=== PATIENT | male | born 1950 | race Caucasian/White ===

== ENCOUNTER 2018-04-21 13:44 | Emergency (ER) | payer OTHER, SELFPAY ==
[2018-04-21 13:50] VITALS: BP 143/65; PULSE 68; RESP 16; TEMP 36.5; O2SAT 97
--- NOTE | 2018-04-21 14:28 | DI.RAD_ITS ---
SYMPTOM/DIAGNOSIS: FELL, PAIN RIGHT HUMERUS: Four views. No acute fracture or dislocation is seen. Degenerative changes are seen at the acromioclavicular joint and the elbow. The soft tissues are unremarkable. IMPRESSION: No acute abnormality.
--- NOTE | 2018-04-21 14:31 | ED.GENADUL_ITS ---
Discharge Plan Disposition Patient Disposition: HOME Discharge Details Chief Complaint: Orthopedic Clinical Impression: Contusion of right upper arm Primary Care Provider: Ben Diaz ED Provider: Jesse Sol Home Meds and New Rx's Prescriptions: Continued sildenafil [Viagra] 100 MG tablet 1 tab PO PRN Qty: 10 RF: 6 montelukast [Singulair] 10 MG tablet 10 mg PO DAILY RF: 0 triamcinolone acetonide 80 GM ointment 80 gm Topical BID Qty: 1 RF: 2 cetirizine [Zyrtec] 10 MG tablet 10 mg PO DAILY Qty: 30 RF: 0 aspirin 325 MG tablet 325 mg PO DAILY Qty: 30 RF: 0 prednisone 20 MG tablet PO DAILY Qty: 11 RF: 0 lisinopril 20 MG tablet 1 tab PO DAILY Qty: 90 RF: 4 amlodipine [Norvasc] 5 MG tablet 1 tab PO QAM Qty: 90 RF: 4 tamsulosin [Flomax] 0.4 MG capsule 0.4 mg PO DAILY Qty: 90 RF: 4 pravastatin 20 MG tablet 20 mg PO DAILY Qty: 90 RF: 3 Discharge Instructions Instructions: Contusion in Adults (ED) Additional Instructions: Use sling as needed for comfort over the next 1-2 weeks. If pain persist or worsens, please follow-up with orthopedics. Please take ibuprofen over the counter - dose according to label. Please contact your primary care physician to arrange follow-up. Return to the ER for any worsening or new concerning symptoms. Referrals: Ben Diaz DO [Primary Care Provider] - Humphrey Perdomo MD [ [facility] STAFF PHYSICIAN] - Medical Decision Making 67-year-old male presents with right proximal upper arm pain after mechanical slip and fall on ice earlier today. Neurovascular intact distally. Tender over his proximal humerus. Concern for proximal humerus fracture. X-ray of the humerus was reviewed and interpreted by radiology: No evidence of acute bony injury. Spurring of the acromion. Suspect upper arm contusion. Plan to provide sling for comfort. Usual and customary discharge instructions were provided. HPI General Mode of arrival: ambulatory . Date/Time Provider Initiated Documentation: 04/21/18 14:22 . Limitations to Documentation: no limitations . Information obtained by: patient . HPI Narrative: 67-year-old male presents after mechanical slip and fall on ice at 10 AM today with injury to his right shoulder. Patient has chief complaint of proximal right upper arm pain that is worse with movement. Pain is severe at times. No associated numbness or tingling. No other injury. He did not hit his head or lose consciousness and has no neck pain. Related Data Home Medications Medication Instructions Recorded Confirmed sildenafil [Viagra] 1 tab PO PRN #10 tab 04/20/14 04/21/18 montelukast [Singulair] 10 mg PO DAILY tab-cap 10/06/15 04/21/18 triamcinolone acetonide 80 gm TOPICAL BID #1 tub 08/02/16 04/21/18 aspirin 325 mg PO DAILY #30 tab-cap 10/10/16 04/21/18 cetirizine [Zyrtec] 10 mg PO DAILY #30 tab-cap 10/10/16 04/21/18 prednisone 0 PO DAILY #11 tab 05/16/17 amlodipine [Norvasc] 1 tab PO QAM #90 tab 05/28/17 04/21/18 lisinopril 1 tab PO DAILY #90 tab 05/28/17 04/21/18 pravastatin 20 mg PO DAILY #90 tab-cap 05/28/17 04/21/18 tamsulosin [Flomax] 0.4 mg PO DAILY #90 tab-cap 05/28/17 04/21/18 Previous Rx's Medication Instructions Recorded amlodipine [Norvasc] 1 tab PO QAM #90 tab 05/28/17 lisinopril 1 tab PO DAILY #90 tab 05/28/17 pravastatin 20 mg PO DAILY #90 tab-cap 05/28/17 tamsulosin [Flomax] 0.4 mg PO DAILY #90 tab-cap 05/28/17 Allergies Allergy/AdvReac Type Severity Reaction Status Date / Time No Known Allergies Allergy Unverified 04/21/18 13:52 General Stated Complaint: Orthopedic YASMIN: 4 Review of Systems Cardiovascular Denies chest pain and Denies dyspnea Respiratory Denies dyspnea Gastrointestinal Denies abdominal pain Musculoskeletal Reports as per HPI Neurologic Reports as per HPI [facility] Surgical History Fasciectomy, Palmar Ruptured Quad Tendon Repair (12/06/12) Tonsillectomy and adenoidectomy Family History Mother Stroke Father Stroke Sister No problems noted. Brother No problems noted. Grandfather Neoplasm Grandfather No problems noted. Grandmother No problems noted. Grandmother No problems noted. Son No problems noted. Son No problems noted. Social History Smoking and Tabacco status: Former Tobacco Use Exam Const General: cooperative and no acute distress HENMT Head: normocephalic and atraumatic Mouth: moist mucous membranes Neck Neck: full ROM, trachea midline, supple and nontender Resp Auscultation: clear to auscultation bilaterally, no rales, no rhonchi and no wheezes Cardio Rate: regular rate and not tachycardic Rhythm: regular rhythm Pulses: radial pulses present GI Palpation: soft, not firm and nontender Skin General skin exam: no rashes or lesions noted Neuro General: alert, awake and tone normal Extrem General: no edema Right upper extremity: shoulder/upper arm Details: tenderness Location: of the proximal humerus, axillary nerve sensory function normal and abnormal ROM Details: held in an abnormal fashion Details: in ADduction; no ecchymosis Psych Appearance: grossly normal Course Vital Signs Temperature 36.5 C 04/21/18 13:50 Pulse 68 04/21/18 13:50 Respiratory Rate 16 04/21/18 13:50 Blood Pressure 143/65 H 04/21/18 13:50 Pulse Oximetry 97 04/21/18 13:50 Temperature 36.5 C 04/21/18 13:50 Temperature Source Skin 04/21/18 13:50 Pulse 68 04/21/18 13:50 Respiratory Rate 16 04/21/18 13:50 Respiratory Effort Non-Labored 04/21/18 13:50 Blood Pressure 143/65 H 04/21/18 13:50 Blood Pressure Position Sitting 04/21/18 13:50 Pulse Oximetry 97 04/21/18 13:50 Oxygen Delivery Method Room Air 04/21/18 13:50 Oxygen Flow Rate 0 04/21/18 13:50 Pain Level 8 04/21/18 13:54
--- NOTE | 2018-04-21 15:36 | DI.VRAD_ITS ---
EXAM: XR Right Humerus, 2 or More Views EXAM DATE/TIME: 04/21/2018 2:30 PM CLINICAL HISTORY: 67 years old, male; Signs and symptoms; Other: Prox humerus pain, fall; Prior surgery; Surgery date: 6+ months; Surgery type: Shoulder surgery for arthritis TECHNIQUE: XR Right humerus, 2 or more views. COMPARISON: No relevant prior studies available. FINDINGS: No acute fracture. 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 Inferior spurring of the lateral acromion which may predispose to impingement. Soft tissues unremarkable. IMPRESSION: 1. No evidence of acute bony injury. 2. Spurring of the acromion. Dictated and Authenticated by: Reji Farah MD. Ordering:GREGORY Molina MD
== END 2018-04-21 15:45 | disposition home or self-care (01) ==
PROVIDERS: Emergency Provider Student in an Organized Health Care Education/Training Program; PCP Emergency Medicine
DX: S40.021A Contusion of right upper arm, initial encounter (principal); W00.0XXA Fall on same level due to ice and snow, initial encounter
CPT/HCPCS: 99283; 73060; 99282; L3650

== ENCOUNTER 2018-11-08 14:01 | Outpatient (CLI) | payer OTHER, SELFPAY ==
--- NOTE | 2018-11-08 13:45 | DI.RAD_ITS ---
EXAM: XR SHOULDER RT COMPLETE 2+V INDICATION: right shoulder pain, M25.511. COMPARISON: RIGHT SHOULDER COMPLETE from 03/07/2013 TECHNIQUE: 2D digital imaging was performed. FINDINGS: Five views were obtained. There are prominent degenerative changes of the acromioclavicular and gaurav ohumeral joints. Cartilaginous joint space of glenohumeral joint appears fairly well maintained. No other significant bony or soft tissue abnormality seen. IMPRESSION: DJD as described above
== END 2018-11-08 14:21 ==
PROVIDERS: PCP Emergency Medicine; Visit Provider Emergency Medicine
DX: M25.511 Pain in right shoulder (principal); M19.011 Primary osteoarthritis, right shoulder
CPT/HCPCS: 73030

== ENCOUNTER 2018-11-27 10:13 | Outpatient (CLI) | payer OTHER, SELFPAY ==
--- NOTE | 2018-11-27 09:55 | DI.RAD_ITS ---
EXAM: XR SHOULDER RT COMPLETE 2+V INDICATION: pain COMPARISON: XR SHOULDER RT COMPLETE 2+V from 11/08/2018 TECHNIQUE: 2D digital imaging was performed. FINDINGS: Degenerative changes are again noted at the AC joint and glenohumeral joint. Glenohumeral joint spa ce is well maintained. There is also some spurring of the undersurface of the acromion and greater a nd lesser tuberosities. IMPRESSION: Stable degenerative changes.
== END 2018-11-27 10:33 ==
PROVIDERS: PCP Emergency Medicine; Visit Provider Orthopaedic Surgery
DX: M25.511 Pain in right shoulder (principal); M19.011 Primary osteoarthritis, right shoulder
CPT/HCPCS: 73030

== ENCOUNTER 2019-03-19 09:46 | Outpatient (CLI) | payer OTHER, SELFPAY ==
--- NOTE | 2019-03-19 16:16 | DI.RAD_ITS ---
EXAM: XR KNEE RT 3V AP,LAT,BRAVO CLINICAL HISTORY: sudden onset of effusion, pain right knee M25.461 PAIN RT KNEE. TECHNIQUE: COMPARISON: LEFT KNEE 3 VIEW COMPLETE from 05/16/2017 FINDINGS: Three views were obtained. There is mild narrowing of the medial tibiofemoral cartilaginous joint sp tj. There is a prominent enthesophyte of the superior patella. There is marked prepatellar soft ti ssue swelling and there is probable knee joint effusion as well. No other focal bony abnormality seen. No evidence of acute fracture. IMPRESSION:
== END 2019-03-19 10:06 ==
PROVIDERS: PCP Emergency Medicine; Visit Provider Nurse Practitioner Family
DX: M25.561 Pain in right knee (principal); M25.461 Effusion, right knee; M79.89 Other specified soft tissue disorders
CPT/HCPCS: 73562

== ENCOUNTER 2019-03-19 16:41 | Outpatient (CLI) | payer OTHER, SELFPAY ==
[2019-03-19 17:00] LABS: Abs Immature Grans 0.05 k/cumm (0.0-0.09); Absolute Basophil Count 0.02 k/cumm (0.0-0.2); Absolute Lymphocyte Count 0.57 k/cumm (1.2-3.4); Absolute Monocyte Count 0.89 k/cumm (0.11-0.7); Basophils % 0.1; HCT 45.8 % (40.0-50.0); HGB 15.5 g/dL (13.5-17.5); Immature Grans % 0.3 %; Lymphocytes % 3.2; Mean Corp. HGB Concentration 33.8 g/dL (32.0-36.0); Mean Corpuscular Volume 88.6 fL (80-95); Mean Platelet Volume 9.9 fL (8.0-11.0); Neutrophils % 91.4; Platelet Count 192 x1000/uL (130-400); RBC 5.17 m/cumm (4.50-6.00); RBC Distribution Width 12.7 % (11.8-14.1); White Blood Cell Count 17.86 k/cumm (4.4-10.8)
[2019-03-19 17:02] LABS: Absolute Neutrophil Count 16.32 k/cumm (1.2-6.7)
[2019-03-19 17:42] LABS: ALT 30 U/L (16-63); AST 21 U/L (15-37); Albumin 4.4 g/dL (3.4-5.0); Alkaline Phosphatase 74 U/L (46-116); Anion Gap 9.4 mmol/L (3-11); BUN 21 mg/dL (7-18); Bilirubin, Total 0.7 mg/dL (0.2-1.0); C-Reactive Protein 0.57 mg/dL (0.0-0.3); CO2 23.6 mmol/L (21.0-32.0); CREATININE 1.29 mg/dL (0.70-1.30); Calcium 8.7 mg/dL (8.5-10.1); Chloride 106 mmol/L (98-107); Estimated GFR 55.06 (mL/min/1.73m2); Glucose 144 mg/dL (74-106); Potassium 4.2 mmol/L (3.5-5.1); Sodium 139 mmol/L (136-145); Total Protein 7.2 g/dL (6.4-8.2); Uric Acid 4.4 mg/dL (3.5-7.2)
[2019-03-19 17:49] LABS: ESR 10 mm/hr (1-20)
[2019-03-21 11:46] LABS: Lyme Ab w Rflx to Lyme Confirm Negative (Negative)
[2019-03-25 01:18] LABS: Anaplasma phagocytophilum Negative (Negative); B. miyamotoi PCR Negative (Negative); Babesia divergens/MO-1 Negative (Negative); Babesia duncani Negative (Negative); Babesia microti Negative (Negative); Ehrlichia chaffeensis Negative (Negative); Ehrlichia ewingii/canis Negative (Negative); Ehrlichia muris eauclairensis Negative (Negative)
== END 2019-03-19 17:01 ==
PROVIDERS: PCP Emergency Medicine; Visit Provider Nurse Practitioner Family
DX: M25.461 Effusion, right knee; M25.561 Pain in right knee
CPT/HCPCS: 36415; 80053; 85652; 87798; 84550; 85025; 86140; 86618

== ENCOUNTER 2019-03-22 12:33 | Inpatient (IN) | payer OTHER, SELFPAY ==
[2019-03-22 12:44] VITALS: BP 130/96; PULSE 70; RESP 16; TEMP 37.4; O2SAT 100
--- NOTE | 2019-03-22 13:02 | ED.GENADUL_ITS ---
Discharge Plan Disposition Patient Disposition: [facility] INPATIENT Condition: Stable Discharge Details Chief Complaint: Vascular Clinical Impression: Bursitis, prepatellar, right Admit Date/Time: 03/22/19 15:11 Admit Provider: Humphrey Perdomo Attending Provider: Humphrey Perdomo Primary Care Provider: Ben Diaz ED Provider: Humphrey Lopez Discharge Data Discharge Date/Time-TO BE ENTERED AT DEPARTURE: 03/22/19 15:36 Medical Decision Making 68-year-old male with day 5 of right knee swelling and erythema for which she was seen in clinic on March 19, was referred for outpatient x-ray, laboratory, referred to orthopedics and placed on Keflex. Patient now with worsening pain and swelling of the knee. He arrives with vital signs that are within normal limits. The right knee is diffusely swollen, tender, erythematous. X-ray from 03/19: Three views were obtained. There is mild narrowing of the medial tibiofemoral cartilaginous joint space. There is a prominent enthesophyte of the superior patella. There is marked prepatellar soft tissue swelling and there is probable knee joint effusion as well. Laboratories from March 19 revealed a white blood cell count elevated at 17. Repeat laboratories today: CRP is elevated at 18, uric acid 3.3, white blood cell count has come down to 10 but with elevated ANC. I consented the patient for right knee arthrocentesis, he was prepped and draped in standard sterile fashion, anesthetized, but unable to successfully aspirate synovial fluid. Case discussed with Dr. Perdomo who saw the patient in consultation. He performed bedside needle aspiration of the prepatellar space with release of a generous amount of purulent fluid. Patient was given vancomycin and admitted to Dr. Perdomo's service for prepatellar bursitis. HPI General Mode of arrival: ambulatory . Date/Time Provider Initiated Documentation: 03/22/19 12:35 . Limitations to Documentation: no limitations . Information obtained by: patient and family . History of Present Illness 68 year old M presents to the emergency department with the chief complaint of Right knee pain, swelling, erythema, described as moderate, Quality is described as dull and constant, and is localized to the right and lower extremity. Patient reports no radiation. Patient started experiencing this day(s) and it has been constant. Rest improves symptom(s), Movement worsens symptoms . Patient notes no other symptoms.. Patient did receive the following treatments prior to arrival, other (Cephalexin and outpatient x- ray) Related Data Home Medications Medication Instructions Recorded Confirmed cetirizine [Zyrtec] 10 mg PO DAILY #30 tab-cap 10/10/16 03/22/19 pravastatin 20 mg tablet 20 mg PO DAILY #90 tab-cap 08/08/18 03/22/19 amlodipine 5 mg tablet 5 mg PO QAM #90 tab 09/24/18 03/22/19 lisinopril 20 mg tablet 20 mg PO DAILY #90 tab 11/08/18 03/22/19 cephalexin 500 mg tablet 500 mg PO QID 7 Days #28 tab 03/19/19 03/22/19 naproxen 500 mg tablet 500 mg PO BID PRN #60 tab 03/19/19 03/22/19 acetaminophen [Tylenol] 325 mg PO PRN PRN 03/22/19 03/22/19 aspirin [Aspir-Low] 81 mg PO DAILY AM 03/22/19 03/22/19 tamsulosin 0.4 mg PO DAILY AM 03/22/19 03/22/19 Previous Rx's Medication Instructions Recorded pravastatin 20 mg tablet 20 mg PO DAILY #90 tab-cap 08/08/18 amlodipine 5 mg tablet 5 mg PO QAM #90 tab 09/24/18 lisinopril 20 mg tablet 20 mg PO DAILY #90 tab 11/08/18 cephalexin 500 mg tablet 500 mg PO QID 7 Days #28 tab 03/19/19 naproxen 500 mg tablet 500 mg PO BID PRN #60 tab 03/19/19 Allergies Allergy/AdvReac Type Severity Reaction Status Date / Time No Known Allergies Allergy Unverified 03/22/19 12:48 General Stated Complaint: Vascular YASMIN: 3 Review of Systems Narrative: Denies fever, chills, no injury. Taking Keflex with no change. Joint hurts to move. 6 systems reviewed and otherwise negative [facility] Social History Smoking/Tobacco Use Status: Former Tobacco Use Drug use: Never Current gender identity: male Do you feel safe in your relationship?: Yes Exam Narrative Exam Narrative: GEN: awake, alert, oriented 3. Pleasant, well groomed, interactive. HEAD: Normocephalic, atraumatic ENT: Mucous membranes moist, oropharynx unremarkable, External ear exam unremarkable EYES: PERRL, EOMI NECK: Full ROM, no PARRISH, no menigismus CHEST/RESP: Nontender, clear to auscultation bilateral, no wheeze/rhonchi/rales CARDIOVASCULAR: RRR, no murmur, rub sol. 2+ Rad pulse bilateral ABDOMEN: Soft, nontender, no mass. +Bowel sounds EXT: The right knee is edematous and tense with overlying erythema that is warm to the touch. Pain with movement of the knee. Motor is intact but limited by pain. Neuro: Grossly normal neurologic exam, conversant, interactive. Psych: Speech fluent, thoughts congruent, affect normal Course Vital Signs Vital signs: Vital Signs Temperature 37.4 C 03/22/19 12:44 Pulse 70 03/22/19 12:44 Respiratory Rate 16 03/22/19 12:44 Blood Pressure 130/96 H 03/22/19 12:44 Pulse Oximetry 100 03/22/19 12:44 Temperature 37.4 C 03/22/19 12:44 Temperature Source Temporal Artery Scan 03/22/19 12:44 Pulse 70 03/22/19 12:44 Respiratory Rate 16 03/22/19 12:44 Blood Pressure 130/96 H 03/22/19 12:44 Blood Pressure Position Supine 03/22/19 12:44 Pulse Oximetry 100 03/22/19 12:44 Oxygen Delivery Method Room Air 03/22/19 12:44 Oxygen Flow Rate 0 03/22/19 12:44 Pain Level 10 03/22/19 12:44
[2019-03-22 13:38] LABS: Abs Immature Grans 0.03 k/cumm (0.0-0.09); Absolute Basophil Count 0.01 k/cumm (0.0-0.2); Absolute Eosinophil Count 0.12 k/cumm (0.0-0.7); Absolute Lymphocyte Count 0.96 k/cumm (1.2-3.4); Absolute Neutrophil Count 8.29 k/cumm (1.2-6.7); Basophils % 0.1; Eosinophils % 1.2; HCT 42.8 % (40.0-50.0); HGB 14.7 g/dL (13.5-17.5); Immature Grans % 0.3 %; Lymphocytes % 9.3; Mean Corp. HGB Concentration 34.3 g/dL (32.0-36.0); Mean Corpuscular Hemoglobin 30.5 pg (27.0-33.0); Mean Corpuscular Volume 88.8 fL (80-95); Mean Platelet Volume 10.1 fL (8.0-11.0); Monocytes % 8.7; Neutrophils % 80.4; Platelet Count 197 x1000/uL (130-400); RBC 4.82 m/cumm (4.50-6.00); RBC Distribution Width 12.7 % (11.8-14.1); White Blood Cell Count 10.31 k/cumm (4.4-10.8)
[2019-03-22 13:52] LABS: ALT 25 U/L (16-63); AST 18 U/L (15-37); Albumin 3.4 g/dL (3.4-5.0); Alkaline Phosphatase 66 U/L (46-116); Anion Gap 10.3 mmol/L (3-11); BUN 23 mg/dL (7-18); Bilirubin, Total 0.7 mg/dL (0.2-1.0); C-Reactive Protein 18.19 mg/dL (0.0-0.3); CO2 25.7 mmol/L (21.0-32.0); CREATININE 1.08 mg/dL (0.70-1.30); Calcium 8.1 mg/dL (8.5-10.1); Chloride 103 mmol/L (98-107); Glucose 101 mg/dL (74-106); Potassium 4.1 mmol/L (3.5-5.1); Sodium 139 mmol/L (136-145); Total Protein 7.2 g/dL (6.4-8.2); Uric Acid 3.3 mg/dL (3.5-7.2)
[2019-03-22] MEDS: Ketorolac 15 MG/ML VIAL IVP (14:15)
[2019-03-22 14:18] VITALS: TEMP 37
[2019-03-22 15:27] VITALS: BP 120/68; PULSE 72; RESP 20; TEMP 36.6; O2SAT 96
[2019-03-22 15:47] VITALS: BP 134/75; PULSE 69; RESP 18; TEMP 37.1; O2SAT 96
[2019-03-22] MEDS: VANCOMYCIN 2,000 MG in Normal Saline 500 ML 250 MG IVPB (16:31)
[2019-03-22] MEDS: HYDROcodone 5/Acetaminophen 325 TAB PO (18:25)
[2019-03-22 19:03] VITALS: BP 129/73; PULSE 76; RESP 20; TEMP 37.8; O2SAT 96
[2019-03-22] MEDS: Ketorolac 30 MG/ML VIAL IVP (19:12)
[2019-03-22] MEDS: Lisinopril 20 MG TAB PO (19:13)
[2019-03-22] MEDS: Pravastatin 20 MG TAB PO (19:13)
[2019-03-22] MEDS: Normal Saline Flush 10 ML SYR IVP (19:13)
[2019-03-22 23:35] VITALS: BP 112/71; PULSE 68; RESP 16; TEMP 37.2; O2SAT 96
[2019-03-23] VITALS (7 sets, daily range): BP systolic 117–127; BP diastolic 7–75; PULSE 58–74; RESP 16–20; TEMP 35.8–37.1; O2SAT 95–98
[2019-03-23] MEDS: Ketorolac 30 MG/ML VIAL IVP ×4 (01:35→19:38)
[2019-03-23] MEDS: Normal Saline Flush 10 ML SYR IVP ×5 (01:35→13:46)
[2019-03-23] MEDS: HYDROcodone 5/Acetaminophen 325 TAB PO ×3 (01:37→12:15)
[2019-03-23] MEDS: Water,Injection,Sterile 10 ML VIAL ×2 (06:11)
[2019-03-23] MEDS: VANCOMYCIN 2,000 MG in Normal Saline 500 ML 167 MG IVPB (06:13)
[2019-03-23] MEDS: Tamsulosin 0.4 MG CAPCR PO (07:50)
[2019-03-23] MEDS: Aspirin E.C. 81 MG TABEC PO (07:50)
[2019-03-23] MEDS: amLODIPine 5 MG TAB PO (07:50)
--- NOTE | 2019-03-23 10:59 | PDOC.CMIN ---
- If Service Date Differs Date of service: 03/23/19 Time of Service: 10:59 Care Management Initial Assess REASON FOR HOSPITALIZATION:: Bursitis, right prepatellar PAST MEDICAL HISTORY/PAST SURGICAL HISTORY:: HTN, BPH, hearing loss, right rotator cuff repair, quad rupture 2013 repair. PREVIOUS FUNCTIONAL STATUS/SOCIAL/FAMILY SUPPORTS:: Trung lives in [place], [place] with his spouse yLnne . He is indepedent with ADL's, transporation. 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 CURRENT FUNCTIONAL STATUS:: Trung is alert and engaged during assessment. He is able to articulate events prior to admission including history of visit with his primary care, and oral abx. Trung reports that the pain and swelling became worse and he went to the ED for treatment. He was brought to the OR today by and remains on IV abx. ADVANCE DIRECTIVES:: None on file offered forms and assistance in completion. Has patient been provided with information about the portal?: Yes Did the patient sign up for the portal?: No CODE STATUS:: Full Code INSURANCE COVERAGE / FINANCIAL ISSUES:: [employer] CURRENT HOME/COMMUNITY SERVICES/EQUIPMENT:: No current services PRIMARY CARE PHYSICIAN:: POTENTIAL DISCHARGE NEEDS:: Follow up appointment with orthopedics as directed PATIENT/FAMILY EDUCATION NEEDS:: Discharge education, limitations and follow up plan of care. ANTICIPATED BARRIERS TO DISCHARGE:: None TRANSPORTATION:: Via private car with family PLAN:: Trung will be discharged home when he is medically ready. Anticipate no additional services at time of discharge. CM will continue to assess for discharge needs.
--- NOTE | 2019-03-23 11:06 | PHARADMIT ---
Addendum entered by Mavis Delacruz 03/24/19 15:47: Pharmacy Note Subjective pt feeling better per progress note Objective VS-okay no labs Assessment MD wants to continue vanco at current dose until tomorrow due to micro, to make sure only growing group C strep. no trough needed per MD Plan possible discharge on PO abx tomorrow pending micro Original Note: Admission Pharmacy Clinical Review PREPATELLAR BURSITIS (OR W/ 03/23/19 for I&D) Code Status Full Code Current Weight 92.986 kg Renally Cleared and Narrow Therapeutic Index Meds CrCl~59ml/min QTc Value / Action Taken N/A BP Control, Fever BP 122/73 Afebrile Pain 04/21 Electrolytes reviewed K+ 4.1 DVT Prophylaxis none at this time-going to OR Opiate Usage / Scheduled Bowel Regimen Ordered Yes, Merritt....no bowel meds Plt/SCr for Heparin / Enoxaparin Plt 197 SCr 1.08 INR for Warfarin H/H stable, WBC/Bands H/H 14.7/42.8 WBC 10.31 Antibiotic appropriateness Vanco 2 gram IV Q12h...not per protocol, predicted trough 26.5, patient going to OR, did receive 2 doses prior to going to OR (6pm,6am) Cultures and Sensitivities Synovial fluid from knee collected in ER: reported this morning Group C Strep-rare, so will not need Vanco anyway Surgical ABX d/c within 24 hr DM control / Insulin Dosing BG 101 Heart Failure (Check EF%) (GENARO's, B-Block, Diuretics) Amlodipine, Lisinopril IV to PO Switch Home Meds Reviewed Home Meds Not Ordered Cetirizine, Naproxen, some older Rx's on home med list Comments Was on Cephalexin as outpt CRP 18.19
[2019-03-23] MEDS: Lactated Ringers 1,000 ML 75 ML IV (11:45)
[2019-03-23] MEDS: Bupivacaine 0.5% Pres-Free 30 ML VIAL (11:58)
--- NOTE | 2019-03-23 12:21 | W.PM.PROGNOT ---
Date of Service Date of service: 03/23/19 Time of Service: 12:21 Assessment and Plan Assessment and plan (1) Infection of right prepatellar bursa: Status: Acute Assessment and plan: Assessment: Despite the fact that he is been afebrile and feels better today I think he needs an I&D of his infected prepatellar bursa. I took out 15 cc of herson pus from the prepatellar bursa yesterday and he has reaccumulated pus overnight. I think his response to treatment and recovery will be much quicker with incision and drainage and insertion of a drain into the prepatellar bursa. He agrees with my recommendation. Plan: I&D of infected prepatellar bursa with insertion of a Deon drain under IV sedation and local anesthesia later today. Subjective Subjective Patient reports: feels better and pain is less Exam Narrative Exam Narrative: He has reaccumulated the fluid in his right prepatellar bursa. I can ballotte fluid in the prepatellar bursa. There is no effusion in the knee. Still painful for him to attempt to flexes right knee. Bursal culture from yesterday is the reported is growing group C strep. He has been afebrile overnight. Objective Objective Clinical Data: Abnormal lab results 03/22/19 03/22/19 Range/Units 13:25 13:25 Absolute Neutrophils 8.29 H (1.2-6.7) k/cumm Absolute Lymphocytes 0.96 L (1.2-3.4) k/cumm Absolute Monocytes 0.90 H (0.11-0.7) k/cumm BUN 23 H (7-18) mg/dL Uric Acid 3.3 L (3.5-7.2) mg/dL Calcium 8.1 L (8.5-10.1) mg/dL C-Reactive Protein 18.19 H (0.0-0.3) mg/dL Vital Signs Temperature 37.1 C 03/23/19 07:30 Temperature Source Temporal Artery Scan 03/23/19 07:30 Pulse 60 03/23/19 07:30 Pulse Rhythm Regular 03/23/19 07:45 Respiratory Rate 16 03/23/19 07:30 Respiratory Effort Non-Labored 03/23/19 07:45 Respiratory Depth Normal 02/09/20 07:45 Respiratory Pattern Normal 03/23/19 07:45 Blood Pressure 122/73 03/23/19 07:30 Blood Pressure Mean 85 03/22/19 15:27 Blood Pressure Position Supine 03/22/19 12:44 Pulse Oximetry 98 03/23/19 07:30 Oxygen Delivery Method Room Air 03/23/19 07:30 Oxygen Flow Rate 0 03/23/19 07:30 Pain Level 3 03/23/19 09:42 Intake & Output 03/22/19 03/23/19 03/23/19 23:59 11:59 23:59 Intake Total 520 / 520 800 / 1100 300 / 1100 Balance 520 / 520 800 / 1100 300 / 1100 Weight 92.986 kg Intake: IV 520 / 520 500 / 800 300 / 800 Oral 300 / 300 Other: Urine Color Pale Yellow Urine Appearance Clear Urine Odor None Comment pt denies any urinary issues PER PATIENT Voiding Methods Toilet Toilet Laboratory Results WBC 10.31 k/cumm (4.4-10.8) 03/22/19 13:25 RBC 4.82 m/cumm (4.50-6.00) 03/22/19 13:25 Hgb 14.7 g/dL (13.5-17.5) 03/22/19 13:25 Hct 42.8 % (40.0-50.0) 03/22/19 13:25 MCV 88.8 fL (80-95) 03/22/19 13:25 MCH 30.5 pg (27.0-33.0) 03/22/19 13:25 MCHC 34.3 g/dL (32.0-36.0) 03/22/19 13:25 RDW 12.7 % (11.8-14.1) 03/22/19 13:25 Plt Count 197 x1000/uL (130-400) 03/22/19 13:25 MPV 10.1 fL (8.0-11.0) 03/22/19 13:25 Immature Gran % 0.3 % 03/22/19 13:25 Neutrophils % 80.4 03/22/19 13:25 Lymphocytes % 9.3 03/22/19 13:25 Monocytes % 8.7 03/22/19 13:25 Eosinophils % 1.2 03/22/19 13:25 Basophils % 0.1 03/22/19 13:25 Absolute Neutrophils 8.29 k/cumm (1.2-6.7) H 03/22/19 13:25 Absolute Lymphocytes 0.96 k/cumm (1.2-3.4) L 03/22/19 13:25 Absolute Monocytes 0.90 k/cumm (0.11-0.7) H 03/22/19 13:25 Absolute Eosinophils 0.12 k/cumm (0.0-0.7) 03/22/19 13:25 Absolute Basophils 0.01 k/cumm (0.0-0.2) 03/22/19 13:25 Sodium 139 mmol/L (136-145) 03/22/19 13:25 Potassium 4.1 mmol/L (3.5-5.1) 03/22/19 13:25 Chloride 103 mmol/L (98-107) 03/22/19 13:25 Carbon Dioxide 25.7 mmol/L (21.0-32.0) 03/22/19 13:25 Anion Gap 10.3 mmol/L (3-11) 03/22/19 13:25 BUN 23 mg/dL (7-18) H 03/22/19 13:25 Creatinine 1.08 mg/dL (0.70-1.30) 03/22/19 13:25 Estimated GFR/1.73 m2 >= 60.00 (mL/min/1.73m2) 03/22/19 13:25 Glucose 101 mg/dL (74-106) 03/22/19 13:25 Uric Acid 3.3 mg/dL (3.5-7.2) L 03/22/19 13:25 Calcium 8.1 mg/dL (8.5-10.1) L 03/22/19 13:25 Total Bilirubin 0.7 mg/dL (0.2-1.0) 03/22/19 13:25 AST 18 U/L (15-37) 03/22/19 13:25 ALT 25 U/L (16-63) 03/22/19 13:25 Alkaline Phosphatase 66 U/L (46-116) 03/22/19 13:25 C-Reactive Protein 18.19 mg/dL (0.0-0.3) H 03/22/19 13:25 Total Protein 7.2 g/dL (6.4-8.2) 03/22/19 13:25 Albumin 3.4 g/dL (3.4-5.0) 03/22/19 13:25 Fluid Source Cancelled 03/22/19 15:00 Fluid Color Cancelled 03/22/19 15:00 Fluid Clarity Cancelled 03/22/19 15:00 Fluid WBC Cancelled 03/22/19 15:00 Fluid Mononuclear Cell Cancelled 03/22/19 15:00 Fl Polymorphonucl Cell Cancelled 03/22/19 15:00 Fluid Other Cells Cancelled 03/22/19 15:00 Path Cons Comment Cancelled 03/22/19 15:00
--- NOTE | 2019-03-23 12:27 | W.ORTHOCONSU ---
Date of service: 03/22/19 Time of Service: 15:27 History of Present Illness History of Present Illness Chief Complaint: Painful swollen right knee. Narrative: This is a 68-year-old white male known to me due to previous repair of a ruptured left quadriceps tendon. 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 He was working the day before onset of symptoms on 03/19/2019. On 03/19/2019 had a lot of pain and was difficult to walk because of the pain. He could not bend his knee very well because of pain. He was seen by his PCP who arturo labs gave him Toradol and placed him on naproxen and Keflex 500 mg p.o. 4 times daily. Made appointment to be seen on 03/25/2019 by Celeste Lawson. Unfortunately his pain progressed despite being on Keflex. He went to the emergency room today 03/22/2019 because of severity of the pain. In the emergency room aspiration of his knee was attempted by Dr. Lopez. He was unable to obtain any fluid. CRP was 0.57 and sed rate was 10 mm/h on 03/19/2019. Today is CRP is 18+. His white blood cell count is over 10,000 with a left shift. I was consulted for further evaluation including aspiration of his right knee. Assessment and Plan Assessment and plan (1) Infection of right prepatellar bursa: Status: Acute Assessment and plan: Assessment: Infected prepatellar bursa on the right. He does not have septic arthritis of his right knee. Since he failed treatment with an adequate dose of Keflex for 4 days I think he is going to need some IV therapy for this infection. I would recommend starting him on vancomycin to cover MRSA until cultures and sensitivities are available. He may need I&D of the prepatellar bursa as well. Plan: Admit for IV antibiotics and observation. We will start him on vancomycin 2 g every 12 hours. We will reevaluate him tomorrow morning. If he is reaccumulated the fluid and swelling in his prepatellar bursa, I would recommend I&D with insertion of a Deon drain to speed recovery. We will switch to appropriate antibiotics once the cultures are available. [facility] Medical History (Updated 03/23/19 @ 12:25 by Humphrey Acosta MD) Bursitis, prepatellar, right (Inactive) Effusion, right knee (Inactive) Surgical History Fasciectomy, Palmar 10/12/14 DR. ACOSTA; LEFT LITTLE AND RING FINGERS Ruptured Quad Tendon Repair (12/06/12) Left. Tonsillectomy and adenoidectomy Social History Smoking/Tobacco Use Status: Former Tobacco Use Drug use: Never Current gender identity: male Do you feel safe in your relationship?: Yes Exam Narrative Exam Narrative: He has a lot of prepatellar swelling in the right knee. There is overlying erythema over the patella. I do not palpate an effusion. I can see where an aspiration was done by Dr. Lopez. The puncture wound is on the medial side proximal to the patella. The prepatellar bursa is quite swollen I can palpate fluctuance. Very painful for him to flex his knee more than 15 to 20 degrees. I prepped the skin with alcohol and then aspirate the prepatellar bursa with 18-gauge needle. I removed 15 cc of herson pus from the bursa. It is too painful to try to force more fluid out manually from the needle. The sample is sent for routine culture and sensitivity. He feels better with some of the pressure relieved from the aspiration. Results Last Vital Signs Temp 37.1 C 03/23/19 07:30 Pulse 60 03/23/19 07:30 Resp 16 03/23/19 07:30 BP 122/73 03/23/19 07:30 Pulse Ox 98 03/23/19 07:30 Labs Result diagrams: 03/22/19 13:25 03/22/19 13:25 Labs: Laboratory Results - last 24 hr 03/22/19 03/22/19 03/22/19 13:25 13:25 15:00 WBC 10.31 RBC 4.82 Hgb 14.7 Hct 42.8 MCV 88.8 MCH 30.5 MCHC 34.3 RDW 12.7 Plt Count 197 MPV 10.1 Immature Gran % 0.3 Neutrophils % 80.4 Lymphocytes % 9.3 Monocytes % 8.7 Eosinophils % 1.2 Basophils % 0.1 Absolute Neutrophils 8.29 H Absolute Lymphocytes 0.96 L Absolute Monocytes 0.90 H Absolute Eosinophils 0.12 Absolute Basophils 0.01 Sodium 139 Potassium 4.1 Chloride 103 Carbon Dioxide 25.7 Anion Gap 10.3 BUN 23 H Creatinine 1.08 Estimated GFR/1.73 m2 >= 60.00 Glucose 101 Uric Acid 3.3 L Calcium 8.1 L Total Bilirubin 0.7 AST 18 ALT 25 Alkaline Phosphatase 66 C-Reactive Protein 18.19 H Total Protein 7.2 Albumin 3.4 Fluid Source Cancelled Fluid Color Cancelled Fluid Clarity Cancelled Fluid WBC Cancelled Fluid Mononuclear Cell Cancelled Fl Polymorphonucl Cell Cancelled Fluid Other Cells Cancelled Path Cons Comment Cancelled
[2019-03-23] MEDS: Normal Saline 1,000 ML 125 ML IV ×2 (13:47→23:01)
[2019-03-23] MEDS: Acetaminophen 325 MG TAB 650 MG PO (16:21)
[2019-03-23] MEDS: VANCOMYCIN 2,000 MG in Normal Saline 500 ML 250 MG IVPB (17:55)
[2019-03-23] MEDS: Docusate Sodium 100 MG CAP PO (19:37)
[2019-03-23] MEDS: Lisinopril 20 MG TAB PO (19:37)
[2019-03-23] MEDS: Pravastatin 20 MG TAB PO (19:37)
[2019-03-24] MEDS: Ketorolac 30 MG/ML VIAL IVP ×4 (01:38→20:07)
[2019-03-24] MEDS: VANCOMYCIN 2,000 MG in Normal Saline 500 ML 250 MG IVPB ×2 (05:20→17:53)
[2019-03-24] MEDS: HYDROcodone 5/Acetaminophen 325 TAB PO ×2 (05:34→14:25)
[2019-03-24 07:24] VITALS: BP 121/72; PULSE 63; RESP 18; TEMP 37.1; O2SAT 96
[2019-03-24] MEDS: Docusate Sodium 100 MG CAP PO ×2 (07:54→20:06)
[2019-03-24] MEDS: Aspirin E.C. 81 MG TABEC PO (07:54)
[2019-03-24] MEDS: Pantoprazole 40 MG TABCR PO (07:55)
[2019-03-24] MEDS: Tamsulosin 0.4 MG CAPCR PO (07:55)
[2019-03-24] MEDS: amLODIPine 5 MG TAB PO (07:55)
--- NOTE | 2019-03-24 10:19 | ROE_ITS ---
DATE OF PROCEDURE: March 23, 2019 PREOPERATIVE DIAGNOSIS: Infected right prepatellar bursa. POSTOPERATIVE DIAGNOSIS: Same. PROCEDURE: I$T$D of infected prepatellar bursa, right; insertion of Deon drain. ANESTHESIA: IV sedation, Sneha Alba CRNA SURGEON: Humphrey Perdomo M.D. INDICATIONS: This is a 68-year-old white male who was admitted yesterday with an infected prepatella r bursa. He was started on IV antibiotics. I had aspirated his prepatellar bursa yesterday and obta ined herson pus with the aspiration. The swelling and pus in the prepatellar bursa had reaccumulated overnight. I recommended I$T$D of the infected prepatellar bursa to decompress it, alleviate his kerwin n and help the infection resolve more quickly. The risks and complications of the procedure were exp lained to the patient in detail preoperatively. PROCEDURE: The patient was taken to the operating room on 03/23/2019. He was placed supine on the ope rating table. His IV sedation was administered. I prepped his knee with ChloraPrep and then block d raped it with sterile towels and an Ioban. I infiltrated the skin in the midline over the patella wi th 0.5% Marcaine solution. I then took a #11 blade and made an incision through the skin and subcu i nto the prepatellar bursa. The incision was about three quarters of an inch. Herson pus was expresse d from the prepatellar bursa. I then inserted a Tere clamp and spread it to break up any septae wit hin the bursa so no isolated compartments would occur. I then copiously irrigated the bursa with Bet adine and saline solution. I inserted a quarter-inch Deon drain, which I sutured into the incisio n and I loosely approximated the incision with a few interrupted #4-0 nylon sutures. The wound was d ressed with Xeroform gauze, sterile gauze 4x4's, ABD pad, wrapped with a Kerlix bandage and then wrap ped with a 6-inch GENARO bandage for a light compressive dressing. The patient's sedation was reversed without complications and he was discharged to the recovery room in good condition. He was later discharged from the recovery room to his own hospital room when fully recovered from his sedation.
[2019-03-24] MEDS: Milk of Magnesia 30 ML CUP PO (10:41)
[2019-03-24] MEDS: Acetaminophen 325 MG TAB 650 MG PO (10:41)
--- NOTE | 2019-03-24 11:08 | W.NUTCONSULT ---
Date of service: 03/24/19 Time of Service: 11:08 Nutritional Consult ASSESSMENT: 68 year old male, admitted with bursitis. BMI indicates class 1 obesity. Following Regular meal plan. Will follow and adjust meal plan as needed. MONITORING AND EVALUATION: po intake, weight, labs Time Spent in Nutritional Counseling and Treatment: 0 time spent face to face
[2019-03-24] MEDS: Normal Saline 1,000 ML 60 ML IV (12:37)
--- NOTE | 2019-03-24 14:56 | CHAPLAIN ---
Trung was sitting up in the chair when I visited. He was very pleasant and easily engaged in a conversation telling me about his infected knee and the surgery he had to take care of it. He is waiting to see Dr. Perdomo again, and thinks he may be discharged today. His has been in to visit him. Trung seems to be comfortable being here.
--- NOTE | 2019-03-24 15:19 | W.PM.PROGNOT ---
Date of Service Date of service: 03/24/19 Time of Service: 15:19 Assessment and Plan Assessment and plan (1) Infection of right prepatellar bursa: Status: Acute Assessment and plan: Assessment: Infected prepatellar bursa right. I would like him to have another 24 hours of IV antibiotics before switching him to oral. This will also allow micro to further characterize what is growing and make sure is just group C strep. Plan: Continue vancomycin for now. Will remove his drain tomorrow and send him home on oral penicillin if only group C strep is growing from his cultures. Subjective Subjective Patient reports: feels better and pain is less Interval history since last seen: Says his knee feels dramatically better today. Exam Narrative Exam Narrative: I change his dressings today. There is clean serosanguineous drainage that did not soak through the ABD pad. With the dressings off the anterior swelling of the knee and prepatellar bursa is much less. He can actually do an active straight leg raise today on his own. Gentle passive flexion of his right knee does not cause him any pain. It does not cause any fluid to come out from the drain either. I talk with micro about what is growing so far. They tell me there may be a isolated bug that is different from the group C strep. I will know more tomorrow. He remains afebrile. Objective Objective Clinical Data: Vital Signs Temperature 37.1 C 03/24/19 07:24 Temperature Source Tympanic 03/24/19 07:24 Pulse 63 03/24/19 07:24 Pulse Rhythm Regular 03/24/19 09:06 Respiratory Rate 18 03/24/19 07:24 Respiratory Effort 03/24/19 04:25 Respiratory Depth Normal 03/24/19 04:25 Respiratory Pattern Normal 03/24/19 04:25 Blood Pressure 121/72 03/24/19 07:24 Blood Pressure Mean 85 03/22/19 15:27 Blood Pressure Position Supine 03/22/19 12:44 Pulse Oximetry 96 03/24/19 07:24 Oxygen Delivery Method Room Air 03/24/19 07:24 Oxygen Flow Rate 0 03/24/19 07:24 Pain Level 8 03/24/19 14:25 Intake & Output 03/23/19 03/24/19 03/24/19 23:59 11:59 23:59 Intake Total 1800 / 2600 2300.000 / 2300.000 Output Total 800 / 800 725 / 725 Balance 1000 / 1800 1575.000 / 1575.000 Intake: IV 1800 / 2300 1500.000 / 1500.000 Oral 800 / 800 Output: Urine 800 / 800 725 / 725 Other: Urine Color Yellow Light Pam Urine Appearance Clear Clear Urine Odor None Voiding Methods Toilet Toilet Laboratory Results WBC 10.31 k/cumm (4.4-10.8) 03/22/19 13:25 RBC 4.82 m/cumm (4.50-6.00) 03/22/19 13:25 Hgb 14.7 g/dL (13.5-17.5) 03/22/19 13:25 Hct 42.8 % (40.0-50.0) 03/22/19 13:25 MCV 88.8 fL (80-95) 03/22/19 13:25 MCH 30.5 pg (27.0-33.0) 03/22/19 13:25 MCHC 34.3 g/dL (32.0-36.0) 03/22/19 13:25 RDW 12.7 % (11.8-14.1) 03/22/19 13:25 Plt Count 197 x1000/uL (130-400) 03/22/19 13:25 MPV 10.1 fL (8.0-11.0) 03/22/19 13:25 Immature Gran % 0.3 % 03/22/19 13:25 Neutrophils % 80.4 03/22/19 13:25 Lymphocytes % 9.3 03/22/19 13:25 Monocytes % 8.7 03/22/19 13:25 Eosinophils % 1.2 03/22/19 13:25 Basophils % 0.1 03/22/19 13:25 Absolute Neutrophils 8.29 k/cumm (1.2-6.7) H 03/22/19 13:25 Absolute Lymphocytes 0.96 k/cumm (1.2-3.4) L 03/22/19 13:25 Absolute Monocytes 0.90 k/cumm (0.11-0.7) H 03/22/19 13:25 Absolute Eosinophils 0.12 k/cumm (0.0-0.7) 03/22/19 13:25 Absolute Basophils 0.01 k/cumm (0.0-0.2) 03/22/19 13:25 Sodium 139 mmol/L (136-145) 03/22/19 13:25 Potassium 4.1 mmol/L (3.5-5.1) 03/22/19 13:25 Chloride 103 mmol/L (98-107) 03/22/19 13:25 Carbon Dioxide 25.7 mmol/L (21.0-32.0) 03/22/19 13:25 Anion Gap 10.3 mmol/L (3-11) 03/22/19 13:25 BUN 23 mg/dL (7-18) H 03/22/19 13:25 Creatinine 1.08 mg/dL (0.70-1.30) 03/22/19 13:25 Estimated GFR/1.73 m2 >= 60.00 (mL/min/1.73m2) 03/22/19 13:25 Glucose 101 mg/dL (74-106) 03/22/19 13:25 Uric Acid 3.3 mg/dL (3.5-7.2) L 03/22/19 13:25 Calcium 8.1 mg/dL (8.5-10.1) L 03/22/19 13:25 Total Bilirubin 0.7 mg/dL (0.2-1.0) 03/22/19 13:25 AST 18 U/L (15-37) 03/22/19 13:25 ALT 25 U/L (16-63) 03/22/19 13:25 Alkaline Phosphatase 66 U/L (46-116) 03/22/19 13:25 C-Reactive Protein 18.19 mg/dL (0.0-0.3) H 03/22/19 13:25 Total Protein 7.2 g/dL (6.4-8.2) 03/22/19 13:25 Albumin 3.4 g/dL (3.4-5.0) 03/22/19 13:25 Fluid Source Cancelled 03/22/19 15:00 Fluid Color Cancelled 03/22/19 15:00 Fluid Clarity Cancelled 03/22/19 15:00 Fluid WBC Cancelled 03/22/19 15:00 Fluid Mononuclear Cell Cancelled 03/22/19 15:00 Fl Polymorphonucl Cell Cancelled 03/22/19 15:00 Fluid Other Cells Cancelled 03/22/19 15:00 Path Cons Comment Cancelled 03/22/19 15:00
--- NOTE | 2019-03-24 15:28 | CMPROGNOTE_ITS ---
- If Service Date Differs Date of service: 03/24/19 Time of Service: 15:28 Care Management Progress Note S/O: Trung remains acute today he is changing from observation to inpatient. His wound cultures are showing Strep C and he continues on IV Vancomycin. He reports his knee is feeling better expect occasionally he feels a stabbing pain in that area. changed the dressing today and will continue the course. CM offered a financial packet for patient assistance and sent clinicals to [facility] today. CM will continue to assess for discharge needs. A: Trung is a 68 year old male admitted right, Infection of right prepatellar bursa P:Trung will be discharged home when medically ready, anticipate he will not need any additional services at time of discharge. Spouse to transport at time of discharge.
[2019-03-24 15:34] VITALS: BP 124/76; PULSE 61; RESP 19; TEMP 36.3; O2SAT 96
[2019-03-24] MEDS: Lisinopril 20 MG TAB PO (20:06)
[2019-03-24] MEDS: Pravastatin 20 MG TAB PO (20:06)
[2019-03-24] MEDS: Normal Saline Flush 10 ML SYR IVP (20:06)
[2019-03-24 20:29] VITALS: BP 128/76; PULSE 63; RESP 19; TEMP 36.3; O2SAT 97
[2019-03-25] MEDS: Ketorolac 30 MG/ML VIAL IVP ×2 (01:44→08:31)
[2019-03-25] MEDS: Normal Saline Flush 10 ML SYR IVP ×3 (01:44→08:32)
[2019-03-25 03:30] VITALS: BP 121/73; PULSE 62; RESP 17; TEMP 36.8; O2SAT 96
[2019-03-25] MEDS: VANCOMYCIN 2,000 MG in Normal Saline 500 ML 250 MG IVPB (06:16)
[2019-03-25 07:45] VITALS: BP 152/80; PULSE 65; RESP 19; TEMP 37.2; O2SAT 97
--- NOTE | 2019-03-25 08:25 | W.PM.DS.N ---
Date of service: 03/25/19 Time of Service: 08:25 DS: Diagnosis Discharge Diagnosis (1) Infection of right prepatellar bursa: Status: Acute Discharge Plan Disposition Patient Disposition: HOME Condition: Stable Discharge Details Chief Complaint: Vascular Clinical Impression: Bursitis, prepatellar, right Reason For Visit: infected prepatellar bursa R Admit Date/Time: 03/24/19 15:11 Admit Provider: Humphrey Acosta Attending Provider: Humphrey Acosta Primary Care Provider: Ben Diaz ED Provider: Humphrey Lopez Hospital Course Hospital Course: Patient was admitted from emergency room on 03/22/2019 with an infected prepatellar bursa on the right. He was started on IV vancomycin. Although he was improved the following day in terms of pain he had reaccumulated fluid in the prepatellar bursa following my aspiration. I felt he would be better served with an I&D of the prepatellar bursa with insertion of a drain. He is therefore taken the operating room on 03/23/2019 where he underwent an I&D of his prepatellar bursa on the right with insertion of [place] drain. On postop day #1 his pain was dramatically less. He was now able to do a straight leg raise. The drainage we really was minimal barely getting through the gauze 4 x 4's. Culture was growing group C strep. He was seen today with continued improvement. His wound was clean and the serosanguineous drainage was minimal. I removed his [place] drain and redressed his wound. I felt he is ready for discharge home on oral antibiotics. Home Meds and New Rx's Prescriptions: New penicillin V potassium 500 mg tablet 500 mg PO QID Qty: 60 RF: 0 Continued pravastatin 20 mg tablet 20 mg PO DAILY Qty: 90 RF: 4 naproxen 500 mg tablet 500 mg PO BID PRN (Reason: pain) Qty: 60 RF: 0 cetirizine [Zyrtec] 10 MG tablet 10 mg PO DAILY Qty: 30 RF: 0 amlodipine [Norvasc] 5 mg tablet 5 mg PO QAM Qty: 90 RF: 4 lisinopril 20 mg tablet 20 mg PO DAILY Qty: 90 RF: 4 aspirin [Aspir-Low] 81 mg Tablet,Delayed Release (Dr/Ec) 81 mg PO DAILY AM RF: 0 tamsulosin 0.4 mg Capsule 0.4 mg PO DAILY AM RF: 0 acetaminophen [Tylenol] 325 mg Capsule 325 mg PO PRN PRNRF: 0 Discontinued cephalexin 500 mg tablet 500 mg PO QID 7 Days Qty: 28 RF: 0 Discharge Instructions Additional Instructions: Take the penicillin every 6 hours. May remove dressings to shower tomorrow. Cover with light gauze until wound is sealed. Then you can leave it uncovered. Continue to apply the cryocuff to R knee 3-4 times/day for 1 hour each time. Take tylenol or ibuprofen for pain. Follow up with in one week. Referrals: Humphrey Acosta MD [ [facility] STAFF PHYSICIAN] - (f/u in one week) Activity:: Activity as Tolerated Equipment/Supplies:: cryocuff Diet:: As Tolerated Discharge Orders Discharge Orders: Discharge Order (Routine); Ordered 03/25/19 Ordered By: Humphrey Acosta DS: Summary Status at Discharge Functional status at discharge: independent ambulation Overall status at discharge: patient is progressing back to baseline Mental Status: mental status grossly normal Speech and Movement: speech and movement normal Mood: congruent mood Affect: normal affect Exam Psych Mental Status: mental status grossly normal Speech and Movement: speech and movement normal Mood: congruent mood Affect: normal affect DS: Data Vitals/I&O Vitals and I&O: Vital Signs Temperature 37.2 C 03/25/19 07:45 Temperature Source Tympanic 03/25/19 07:45 Pulse 65 03/25/19 07:45 Pulse Rhythm Regular 03/25/19 03:30 Respiratory Rate 19 03/25/19 07:45 Respiratory Effort 03/25/19 03:30 Respiratory Depth Normal 03/25/19 03:30 Respiratory Pattern Normal 03/25/19 03:30 Blood Pressure 152/80 H 03/25/19 07:45 Blood Pressure Mean 85 03/22/19 15:27 Blood Pressure Position Supine 03/22/19 12:44 Pulse Oximetry 97 03/25/19 07:45 Oxygen Delivery Method Room Air 03/25/19 07:45 Oxygen Flow Rate 0 03/25/19 07:45 Pain Level 4 03/25/19 07:45 Intake & Output 02/10/20 02/10/20 02/11/20 11:59 23:59 11:59 Intake Total 2300.000 / 3844.583 1544.583 / 3844.583 Output Total 725 / 1025 300 / 1025 Balance 1575.000 / 2819.583 1244.583 / 2819.583 Intake: IV 1500.000 / 2314.583 814.583 / 2314.583 Oral 800 / 1530 730 / 1530 Output: Urine 725 / 1025 300 / 1025 Other: Urine Color Light Pam Yellow Yellow Urine Appearance Clear Clear Clear Urine Odor None Voiding Methods Toilet Toilet Toilet Data Completed and Pending Labs on day of discharge: Preliminary micro results at discharge 03/22/19 13:44 Blood Culture - Preliminary Blood NO GROWTH 48 HOURS 03/22/19 13:25 Blood Culture - Preliminary Blood NO GROWTH 48 HOURS 03/22/19 15:00 Anaerobic Culture - Preliminary Knee - Right 03/22/19 15:00 Body Fluid Culture - Preliminary Synovial - Right Knee Group C Streptococcus [facility] Medical History (Updated 03/23/19 @ 12:25 by Humphrey Acosta MD) Bursitis, prepatellar, right (Inactive) Effusion, right knee (Inactive) Surgical History Fasciectomy, Palmar 10/12/14 DR. ACOSTA; LEFT LITTLE AND RING FINGERS Ruptured Quad Tendon Repair (12/06/12) Left. Tonsillectomy and adenoidectomy Social History Smoking/Tobacco Use Status: Former Tobacco Use Drug use: Never Current gender identity: male Do you feel safe in your relationship?: Yes
[2019-03-25] MEDS: Tamsulosin 0.4 MG CAPCR PO (08:30)
[2019-03-25] MEDS: Aspirin E.C. 81 MG TABEC PO (08:30)
[2019-03-25] MEDS: Pantoprazole 40 MG TABCR PO (08:30)
[2019-03-25] MEDS: Docusate Sodium 100 MG CAP PO (08:30)
[2019-03-25] MEDS: amLODIPine 5 MG TAB PO (08:30)
--- NOTE | 2019-03-25 16:26 | PDOC.CMDIS ---
- If Service Date Differs Date of service: 03/25/19 Time of Service: 16:26 LACE Index Scoring Tool - Questions: Length of Stay (in days): 1 Acuity (Admit via E.D.?): Yes E.D. Visits: 2 - Answers: Total Score: 6 Risk of Readmission: Low Risk Care Management Discharge Reason for Hospitalization: Bursitis, right prepatellar Discharge Plan: Trung will be discharged home with no new services. He will follow up with his surgeon and discharge plan of care. Trung will transport via private vehicle with family. Patient/Family Education Needs: Discharge plan, limitations, follow up plan and Ask Me Three.
== END 2019-03-25 10:13 | disposition home or self-care (01) | DRG 502 ==
LOC: ER 15:33 → MS 03-23 08:07
PROVIDERS: Admitting Provider Orthopaedic Surgery; Emergency Provider Emergency Medicine; PCP Emergency Medicine; Visit Provider Orthopaedic Surgery
PROC: 0M9N00Z Drainage of Right Knee Bursa and Ligament with Drainage Device, Open Approach (ICD-10-PCS; CPT 27340; principal; 2019-03-23 08:50)
DX: M71.161 Other infective bursitis, right knee (principal); B95.4 Other streptococcus as the cause of diseases classified elsewhere; I10 Essential (primary) hypertension; N40.0 Benign prostatic hyperplasia without lower urinary tract symptoms
CPT/HCPCS: 27301; 20610; 36415; 80053; 87040; 87077; 96374; 99233; 99285; NC; 84550; 85025; 86140; 87070; 87075; 87205; 89051; 99284; G0378; J1885; J2001; J2250; J2704; J3010

== ENCOUNTER 2020-10-19 13:49 | Outpatient (CLI) | payer BC, SELFPAY ==
--- NOTE | 2020-10-19 15:00 | DI.RAD_ITS ---
Exam(s) XR ANKLE RT COMPLETE XR TIB/FIB RT EXAM: XR ANKLE RT COMPLETE CLINICAL HISTORY: injury one week ago, r/o fx s99.919a injury rt ankle. TECHNIQUE: 2D digital imaging was performed. COMPARISON: CR XR TIB/FIB RT from 10/19/2020 FINDINGS: BONES: No acute fracture is present. No bony destructive lesion is seen. Enthesophyte patellar tendo n insertion on the tibia. Calcaneal spurs. Spurring lateral malleolus. JOINTS: The ankle mortise is normally aligned. Knee joint is unremarkable. SOFT TISSUE: Swelling distal soft tissues. IMPRESSION: No evidence of fracture. Soft tissue swelling. DATA REPOSITORY: RADIATION DOSE DELIVERED:
== END 2020-10-19 14:09 ==
PROVIDERS: PCP Emergency Medicine; Visit Provider Physician Assistant
DX: M79.604 Pain in right leg (principal); M25.571 Pain in right ankle and joints of right foot; S99.811A Other specified injuries of right ankle, initial encounter; M79.89 Other specified soft tissue disorders; M77.31 Calcaneal spur, right foot
CPT/HCPCS: 73590; 73610

== ENCOUNTER 2020-11-04 18:35 | Outpatient (REF) | payer BC, SELFPAY ==
[2020-11-04 19:26] LABS: Iron 117 ug/dL (65-175); Total Iron Binding Capacity 377 ug/dL (250-450); Transferrin Sat 31 % (20-55)
[2020-11-04 19:29] LABS: ALT 49 U/L (16-63); AST 29 U/L (15-37); Albumin 4.3 g/dL (3.4-5.0); Alkaline Phosphatase 74 U/L (46-116); Anion Gap 10.4 mmol/L (3-11); BUN 21 mg/dL (7-18); Bilirubin, Total 0.7 mg/dL (0.2-1.0); CO2 24.6 mmol/L (21.0-32.0); CREATININE 1.1 mg/dL (0.70-1.30); Calcium 9.2 mg/dL (8.5-10.1); Chloride 107 mmol/L (98-107); Glucose 99 mg/dL (74-106); HGB 15.2 g/dL (13.5-17.5); MCH 29.7 pg (27.0-33.0); MPV 10.7 fL (8.0-11.0); Platelet Count 212 10^3/uL (130-400); Potassium 4.4 mmol/L (3.5-5.1); RBC 5.11 10^6/uL (4.36-5.78); RDW-SD 39.7 fL; Sodium 142 mmol/L (136-145); Total Protein 7.4 g/dL (6.4-8.2); WBC 7.84 10^3/uL (4.4-10.8)
== END 2020-11-04 18:36 | disposition home or self-care (01) ==
LOC: LBN 18:35
PROVIDERS: PCP Emergency Medicine; Visit Provider Emergency Medicine
DX: G25.81 Restless legs syndrome; M79.604 Pain in right leg; M79.641 Pain in right hand; G25.2 Other specified forms of tremor
CPT/HCPCS: 80053; 85027; 83540; 83550; 86140

== ENCOUNTER 2020-11-23 02:27 | Outpatient (CLI) | payer BC, SELFPAY ==
[2020-11-23 12:46] LABS: ALT 43 U/L (16-63); AST 28 U/L (15-37); Alkaline Phosphatase 83 U/L (46-116); Anion Gap 10.6 mmol/L (3-11); BUN 17 mg/dL (7-18); Bilirubin, Total 0.5 mg/dL (0.2-1.0); CO2 25.4 mmol/L (21.0-32.0); Calcium 8.8 mg/dL (8.5-10.1); Calculated LDL 80 mg/dL (<100); Chloride 105 mmol/L (98-107); Cholesterol 167 mg/dL (<200); Glucose 117 mg/dL (74-106); HDL Cholesterol 40 mg/dL (40-60); Potassium 4.4 mmol/L (3.5-5.1); Sodium 141 mmol/L (136-145); Total Protein 7.1 g/dL (6.4-8.2); Triglyceride 237 mg/dL (<150)
== END 2020-11-23 02:28 | disposition home or self-care (01) ==
LOC: LOS 02:28
PROVIDERS: Family Medicine; PCP Emergency Medicine; Visit Provider Emergency Medicine
DX: I10 Essential (primary) hypertension (principal); E78.5 Hyperlipidemia, unspecified
CPT/HCPCS: 36415; 80053; 80061

== ENCOUNTER 2021-01-18 12:45 | Outpatient (CLI) | payer BC, SELFPAY ==
[2021-01-18 15:47] LABS: Calculated LDL 60 mg/dL (<100); Cholesterol 178 mg/dL (<200); HDL Cholesterol 41 mg/dL (40-60); Triglyceride 388 mg/dL (<150)
[2021-01-19 10:19] LABS: PSA, Screening 1.9 ng/mL (0.0-6.5)
== END 2021-01-18 12:46 | disposition home or self-care (01) ==
LOC: LBO 12:46
PROVIDERS: PCP Emergency Medicine; Visit Provider Emergency Medicine
DX: Z12.5 Encounter for screening for malignant neoplasm of prostate (principal); E78.5 Hyperlipidemia, unspecified
CPT/HCPCS: 36415; 80061; 84153

== ENCOUNTER → 2021-05-26 01:45 | Outpatient (CLI) | payer BC, SELFPAY ==
--- NOTE | 2021-05-26 06:45 | DI.MRI_ITS ---
Exam(s) MR LOWER JOINT RT WO EXAM: MR LOWER JOINT RT WO CLINICAL HISTORY: Chronic right ankle pain above medial malleolus,m25.571. TECHNIQUE: Multiplanar multisequence MRI was performed. COMPARISON: CR XR ANKLE RT COMPLETE from 10/19/2020 FINDINGS: MR examination of the ankle was performed according to the usual protocol. No bony signal abnormality seen in the region of the ankle and hindfoot. Alignment appears within normal limits. Ligamentous and tendinous structures appear intact and show normal signal. There is abnormal signal in subcutaneous fat above the level of the medial malleolus. The area of ap parent edema contains of focal rounded masslike finding which is about 13 x 8 x 9 millimeters in diam eter. This shows low signal on T2 fat sat imaging and high signal on T1 and protein density imaging. The findings would be suggestive of a bony fragment, however radiographs in October 2020 showed n o bony fragment at this site. Other etiologies including soft tissue mass are not excluded. Overall , the findings are suggestive of inflammatory process, but neoplasm is not excluded. The underlying medial tendons show normal signal and the retinaculum appears intact. The IMPRESSION: Masslike finding in subcutaneous fat with associated fat edema superior to the medial malleolus. Add itional evaluation with CT and additional evaluation with pre and post contrast T1 fat sat MRI imagin g is recommended for further characterization. DATA REPOSITORY:
== END ==
PROVIDERS: PCP Family Medicine; Visit Provider Emergency Medicine
DX: M25.571 Pain in right ankle and joints of right foot (principal)
CPT/HCPCS: 73721

== ENCOUNTER 2021-05-26 13:41 | Outpatient (CLI) | payer BC, SELFPAY ==
--- NOTE | 2021-05-26 13:30 | RT.EKG_ITS ---
APPROVED REPORT Exam: Resting ECG Reason for Exam: Chest discomfort Patient Location: O HR:52 bpm ECG Measurements Heart Rate 52 AXIS [place] 200 P 71 QRSd 88 QRS 33 QT 445 T 20 QTc 413 Conclusion Sinus bradycardia...rate< 60 Late transition
== END 2021-05-26 13:42 | disposition home or self-care (01) ==
LOC: DI.CM 13:41
PROVIDERS: PCP Family Medicine; Visit Provider Emergency Medicine
DX: R07.89 Other chest pain (principal)
CPT/HCPCS: 93010

== ENCOUNTER 2021-05-26 14:23 | Outpatient (CLI) | payer BC, SELFPAY ==
[2021-05-26 14:33] LABS: Abs Immature Grans 0.02 10^3/uL (0.0-0.06); Absolute Basophil Count 0.05 10^3/uL (0.0-0.2); Absolute Eosinophil Count 0.13 10^3/uL (0.0-0.7); Absolute Monocyte Count 0.55 10^3/uL (0.1-0.8); Absolute Neutrophil Count 3.31 10^3/uL (1.2-6.7); Basophils % 0.9; Eosinophils % 2.3; HCT 44.1 % (40.0-50.0); Immature Grans % 0.4; Lymphocytes % 28.3; MCH 30.3 pg (27.0-33.0); MCV 89.1 fL (80-95); MPV 9.5 fL (8.0-11.0); Monocytes % 9.7; Neutrophils % 58.4; Nucleated RBC 0 %; Platelet Count 201 10^3/uL (130-400); RBC 4.95 10^6/uL (4.36-5.78); RDW 12.3 % (11.8-14.1); RDW-SD 40.3 fL; WBC 5.66 10^3/uL (4.4-10.8)
[2021-05-26 15:09] LABS: D-Dimer 550 ng/mlFEU (<500)
[2021-05-26 15:59] LABS: ALT 47 U/L (16-63); AST 25 U/L (15-37); Alkaline Phosphatase 70 U/L (46-116); Anion Gap 9.5 mmol/L (3-11); BUN 16 mg/dL (7-18); Bilirubin, Total 0.6 mg/dL (0.2-1.0); C-Reactive Protein 0.13 mg/dL (0.0-0.3); CO2 24.5 mmol/L (21.0-32.0); Calcium 8.6 mg/dL (8.5-10.1); Chloride 106 mmol/L (98-107); Glucose 117 mg/dL (74-106); Potassium 4.2 mmol/L (3.5-5.1); Sodium 140 mmol/L (136-145); TSH 1.94 uIU/mL (0.36-3.74)
== END 2021-05-26 14:24 | disposition home or self-care (01) ==
LOC: LBO 14:23
PROVIDERS: PCP Family Medicine; Visit Provider Emergency Medicine
DX: R00.1 Bradycardia, unspecified (principal); R60.0 Localized edema; R06.00 Dyspnea, unspecified
CPT/HCPCS: 36415; 80053; 84443; 85025; 85379; 86140

== ENCOUNTER → 2021-05-26 23:32 | Outpatient (CLI) | payer BC, SELFPAY ==
--- NOTE | 2021-05-26 14:00 | DI.RAD_ITS ---
Exam(s) XR CHEST 2V PA LATERAL EXAM: XR CHEST 2V PA LATERAL CLINICAL HISTORY: R06.00 Exertional dyspnea. Not PUI TECHNIQUE: 2D digital imaging was performed. COMPARISON: No exams were available for comparison FINDINGS: The heart is not enlarged. The lungs are clear and well expanded. No pleural effusion seen. Mediastin al contours appear intact. IMPRESSION: Normal chest. RADIATION DOSE DELIVERED: Total DLP
== END ==
PROVIDERS: PCP Family Medicine; Visit Provider Emergency Medicine
DX: R06.09 Other forms of dyspnea (principal)
CPT/HCPCS: 71046

== ENCOUNTER → 2021-06-09 02:03 | Outpatient (CLI) | payer BC, SELFPAY ==
--- NOTE | 2021-06-09 07:35 | DI.US_ITS ---
APPROVED REPORT EXAM: Comprehensive 2D, Doppler, and color-flow Echocardiogram Patient Location: Out-Patient Information Systems Operator: Bertha Chavez RDCS (AE) Indications: Dyspnea on exertion, Pre operative exam Other Information Study Quality: Adequate Conclusion Normal left ventricular wall thickness and chamber size. Estimated ejection fraction is 60%. Wall m otion is normal Grossly normal right ventricular size and systolic function Both atria are normal in size Aortic valve is trileaflet and mildly sclerotic with trace regurgitation There is no other additional structural or hemodynamically significant valvular disease Wall motion Left Ventricle The left ventricle is normal size. The left ventricular systolic function is normal. The left ventric ular ejection fraction is within the normal range. There is normal left ventricular wall thickness. T here is normal LV segmental wall motion. There is no ventricular septal defect visualized. LVEF is 58 %. Right Ventricle Right ventricle is grossly normal in size. Right ventricular systolic function is grossly normal. The RVSP is 26.7 mmHg. Atria The left atrium size is normal. The right atrium size is normal. The interatrial septum is intact wit h no evidence for an atrial septal defect. Aortic Valve The Aortic valve is mildly sclerotic. Aortic valve is trileaflet. There is no aortic valvular stenosi s. Trace aortic regurgitation. Mitral Valve The mitral valve is normal in structure. No evidence of mitral valve stenosis. Trace mitral regurgita tion. Tricuspid Valve The tricuspid valve is normal in structure. There is no tricuspid valve stenosis. Mild tricuspid regu rgitation. Pulmonic Valve The pulmonary valve is normal in structure. There is no pulmonic valvular stenosis. There is no pulmo patricia valvular regurgitation. Great Vessels The aortic root is normal in size. The ascending aorta is normal in size. Aortic arch is normal in ca liber. IVC is normal in size and collapses >50% with inspiration. Pericardium There is no pericardial effusion. 2D Dimensions IVSD d PLAX 1.09 cm M: 0.6-1.2 LV Vol A2C d MOD 138.4 mL LVPW d PLAX 1.09 cm M: 0.6 - 1.2 LV Vol A4C d MOD 128.4 mL LVID d PLAX 4.59 cm M: 4.2 - 5.8 LA vol/ BSA A2C s A-L 26.1 mL/m2 LVDs 3.15 cm M: 2.5 - 4.0 LA vol/ BSA A4C s A-L 40.3 mL/m2 Ao Root d 2.77 cm M: 3.1 - 3.7 LA Vol/ BSA Biplane s A-L 35.9 mL/m2 RA Area A4C 16.74 cm2 LA Area A4C s MOD 26.10 cm2 RA Vol/ BSA A4C s A-L 24.4 mL/m2 LA Area A2C s MOD 18.95 cm2 Ao Asc Diam d 3.39 cm M: 2.6 - 3.4 LV EF A4C MOD 58.8 % LV EF Teichholz 57.8 % LV EF A2C MOD 59.6 % LVEF (Pereyra's) 59.49 % M: 52 - 72 LV EF Biplane MOD 59.5 % LV Volume 100.45 mL M: 62 - 150 SV 81.28 mL LV Volume Index 47.38 mL/m2 M: 34 - 74 SV Index 38.23 mL/m2 LV Vol Biplane MOD 136.6 mL FS 30.30 % M-Mode TAPSE 2.73 cm (M/F) >1.7 LV Diastology MV E' medial 0.088 (>0.07 m/s) E/A Ratio 0.9 LV E/e MED 8.25 (<14) MV E Vmax 0.73 (0.4-1.3 m/s) MV E' lateral 0.118 (>0.1 m/s) MV A Vmax 0.80 (0.4-1.3 m/s) LV E/e LAT 6.15 (<14) MV E/A Ratio 0.89 MV E/E' medial 8.29 MV E/E' lateral 6.16 Aortic Valve LVOT Area 2.88 cm2 AoV Area Vmax 2.06 cm2 LVOT Vmax 1.22 m/s AoV Area/ BSA (Vmax) 0.97 cm2/m2 LVOT Mean Ken. 0.79 m/s CARMEN Mean Ken. 1.89 cm2 LVOT Peak Grad 5.9 mmHg CARMEN Mean Ken. Index 0.89 cm2/m2 LVOT Mean Grad 2.9 mmHg LVOT VTI 0.287 m LVOT Diam s 1.90 cm AoV Vmax 1.70 m/s Velocity Ratio 0.71 AoV Mean Ken. 1.20 m/s AoV Peak Grad 11.6 mmHg LVOT SV 82.53 mL AoV Mean Grad 6.4 mmHg AoV VTI 0.376 m AoV Area VTI 2.19 cm2 AoV Area/ BSA (VTI) 1.03 cm/m2 Mitral Valve MV DT 269 (160-240 msec) MV PHT 78 msec MV Area PHT 2.82 cm2 MV VTI 0.299 m MV Area VTI 2.76 (4.0-6.0 cm2) Pulmonary Valve PV Vmax 1.46 (0.5-1.5 m/s) RVOT Peak Gr. 3.68 mmHg PV Peak Grad 8.6 mmHg RVOT Mean Gr. 1.75 mmHg PV Mean Grad 4.0 mmHg RVOT VTI 0.209 m PV VTI 0.268 m RVOT Vmax 0.96 m/s Tricuspid Valve TR Peak Grad 23.6 mmHg TR Vmax 2.43 m/s RA Pressure 3.00 mmHg RVSP (TR) 26.7 mmHg
== END ==
PROVIDERS: PCP Family Medicine; Visit Provider Emergency Medicine
DX: R06.00 Dyspnea, unspecified (principal)
CPT/HCPCS: 93306

== ENCOUNTER → 2021-06-16 01:36 | Outpatient (CLI) | payer BC, SELFPAY ==
--- NOTE | 2021-06-16 07:15 | DI.NM_ITS ---
APPROVED REPORT Exam: Exercise Treadmill Patient Location: Out-Patient Room/Bed: Stress Nurse: Aracelis Farris RN Ordering Provider:YOVANNY ALARCON, Contact Number: [phone] BMI: 34.92 Baseline Rhythm: Sinus Bradycardia Indications: Preop, dyspnea on exertion Medical History Medical History: Hypertension, hyperlipidemia, obesity Cardiac Medications: Lisinopril, aspirin, amlodipine, pravastatin, propranolol (recently stopped) Allergies: Gabapentin Cardiac Risk Factors: Hypertension, hyperlipidemia, obesity, family hx Previous Cardiac Procedures: None Pretest Chest Pain Characteristics: None Exercise History: Sedentary Physical Disabilities: None Lung Sounds: Clear to auscultation Heart Sounds: Regular Stress Test Details Test: Exercise stress testing was performed using a Floyd protocol. Rest Isotope: Tc-99m Sestamibi. Dose: 11.5 Date: 06/16/2021 Injection Time: 0845 Stress Isotope: Tc-99m Sestamibi. Dose: 36.5 Date: 06/16/2021 Injection Time: 1022 HR Resting HR Supine: 56 bpm Max Heart Rate (APMHR): 147 bpm Resting HR Standin bpm Target HR (85% APMHR): 124 bpm Max HR Achieved: 133 bpm % of APMHR: 90 Recovery HR: 73 bpm HR response to stress: Normal HR response to stress BP Resting BP Supine: 128/72 mmHg Resting BP Standin/72 mmHg Max BP: 198/64 mmHg Recovery BP: 128/66 mmHg BP response to stress: Normal blood pressure response to stress. ECG Resting ECG: Sinus Bradycardia Ectopy: None Stress ECG: Sinus Tachycardia ST Change: No significant ST segment changes noted Arrhythmia: Rare PAC, occasional PVC Recovery ECG: Sinus Rhythm Recovery ST Change: No significant ST segment changes noted Recovery Arrhythmia: Frequent PACs and PVCs at beginning of recovery, Clinical Reason for Termination: Fatigue Stress Symptoms: General Fatigue, Dyspnea Exercise duration: 7 min35 sec Highest Stage Reached: Stage 3: 3.4 mph at 14% grade. Exercise capacity: 9.50 METs Correa Treadmill Score: 7.5 Rate Pressure Product: [id number] Stress ECG Conclusion 1. The resting electrocardiogram showed vertical axis, poor R wave progression 2. The patient exercised on the Floyd protocol and completed a workload of 9.5 METS, stopping due to fatigue 3. Normal heart rate and blood pressure response to exercise. The patient achieved 90% of maximal pr edicted heart rate for age 4. There was no electrocardiographic evidence of myocardial ischemia 5. Atrial and ventricular ectopic beats were noted 6. See MPI report Correa Treadmill Score is 7.5 which is Low risk. Stress Test Summary STAGE Time (mins) Speed (mph) Grade (%) HR BP SYMPTOMS METS Supine 56 128/72 Standing 61 134/72 SpO2 96% 1 3 1.7 10 102 138/68 SpO2 96% 4.6 2 6 2.5 12 119 146/68 Mild SOB, SpO2 96% 7 3 9 3.4 14 133 Mild SOB, SpO2 96% 10.2 1 min recovery 110 198/64 SOB resolved, SpO2 98% 3 min recovery 78 154/64 SpO2 98% 6 min recovery 73 128/66 SpO2 98% MPI Conclusion Normal myocardial perfusion without evidence of ischemia or prior infarction EF 51%, normal wall motion Radiologist Interpretation Radiologist agrees with Heating Element Winder's Interpretation. Radiologist Interpretation by: Humphrey Schulte MD Interpretation Date/Time: 06/16/2021 15:07:35
== END ==
PROVIDERS: PCP Family Medicine; Visit Provider Emergency Medicine
DX: R06.09 Other forms of dyspnea (principal); Z01.818 Encounter for other preprocedural examination
CPT/HCPCS: 78452; 93017

== ENCOUNTER 2021-10-03 10:07 | Outpatient (CLI) | payer BC, SELFPAY ==
--- NOTE | 2021-10-05 15:55 | W.PFT ---
Date of service: 10/03/21 Time of Service: 14:58 Pulmonary Function Test Result Requesting Provider Yvette Daniels Indications: FRANCES Interpretation Spirometry: There is no airflow limitation. There is no significant bronchodilator response. Lung Volumes: Normal lung volumes. Diffusion Capacity: Normal diffusion. Airway Pressure: Normal airways resistance. Impression Normal pulmonary function testing. Clinical Correlation therefore is recommended.
== END 2021-10-03 10:08 | disposition home or self-care (01) ==
PROVIDERS: PCP Family Medicine; Visit Provider Family Medicine
DX: Z87.891 Personal history of nicotine dependence (principal); Z77.9 Other contact with and (suspected) exposures hazardous to health; R06.02 Shortness of breath; R06.09 Other forms of dyspnea; R05.9 Cough, unspecified
CPT/HCPCS: 94060; 94726; 94729

== ENCOUNTER 2022-01-06 01:07 | Outpatient (CLI) | payer BC, SELFPAY ==
[2022-01-06 10:42] LABS: Anion Gap 7.9 mmol/L (3-11); BUN 19 mg/dL (7-18); CO2 25.1 mmol/L (21.0-32.0); Calcium 9.1 mg/dL (8.5-10.1); Calculated LDL 82 mg/dL (<100); Chloride 105 mmol/L (98-107); Cholesterol 160 mg/dL (<200); Estimated GFR 79.47 (mL/min/1.73m2); Glucose 108 mg/dL (74-106); HDL Cholesterol 44 mg/dL (40-60); Potassium 4.1 mmol/L (3.5-5.1); Sodium 138 mmol/L (136-145); Triglyceride 171 mg/dL (<150)
== END 2022-01-06 01:08 | disposition home or self-care (01) ==
LOC: LOS 01:07
PROVIDERS: PCP Family Medicine; Visit Provider Family Medicine
DX: I10 Essential (primary) hypertension (principal); Z13.6 Encounter for screening for cardiovascular disorders
CPT/HCPCS: 36415; 80048; 80061

== ENCOUNTER 2022-02-27 07:13 | Day surgery (SDC) | payer BC, SELFPAY ==
[2022-02-27] VITALS (8 sets, daily range): BP systolic 95–152; BP diastolic 49–85; PULSE 51–70; RESP 11–18; TEMP 36–36.7; O2SAT 93–99; BMI 32.8
--- NOTE | 2022-02-27 06:38 | W.ANESPRE ---
General Info Date of Service Date Performed: 02/27/22 Height: 5 ft 7 in Weight: 95.254 kg Body Mass Index (BMI): 32.8 Surgical Procedure: Operation Date: 02/27/22 08:25 Proposed Procedure Side Surgeon p Septoplasty/ Inferior Turbinoplasty Bilateral Jose Banegas MD Meds Allergies and Home Medications Allergies Allergy/AdvReac Type Severity Reaction Status Date / Time gabapentin Allergy Intermediate Pt.reports Verified 02/27/22 07:59 whole body rash Home Medication Medication Instructions Recorded acetaminophen 325 mg capsule 325 mg PO PRN PRN 03/22/19 (Tylenol) aspirin 81 mg tablet,delayed 81 mg PO DAILY AM 03/22/19 release (Aspir-Low) amlodipine 5 mg tablet (Norvasc) 5 mg PO QAM #90 tabs 11/16/21 lisinopril 20 mg tablet 20 mg PO DAILY #90 tabs 11/16/21 pravastatin 20 mg tablet 20 mg PO DAILY #90 tab-caps 11/16/21 tamsulosin 0.4 mg capsule 0.4 mg PO DAILY AM #90 caps 11/16/21 hydrocortisone 2.5 % topical cream 1 applic LA BID-QID PRN 02/17/22 with perineal applicator hemorrhoids #30 grams cephalexin 750 mg capsule 750 mg PO BID 7 days #14 caps 02/27/22 Current Visit Medications: Current Medications Generic Name Dose Route Start Last Admin Trade Name Freq PRN Reason Stop Dose Admin Ringer's Solution 1,000 mls @ 80 mls/hr 02/27/22 06:00 IV 02/27/22 23:59 INFUSION ISIS IV Miscellaneous Supplies 1 each 02/27/22 06:00 Iv Access IV 02/27/22 23:59 DIRECTED ISIS Sodium Chloride 0 ml 02/27/22 06:00 Normal Saline Flush 10 Ml Syr IV 02/27/22 23:59 PRN PRN Sodium Chloride 0 ml 02/27/22 06:00 Normal Saline 10 Ml Vial IJ 02/27/22 23:59 DIRECTED PRN Sterile Water 0 ml 02/27/22 06:00 Water,Injection,Sterile 10 Ml Vial IJ 02/27/22 23:59 DIRECTED PRN PFSH Active Problems Active Problems: Problem Status Onset Code Benign prostatic hypertrophy N40.0 Sensorineural hearing loss of both ears H90.3 Movement disorder G25.9 Hyperlipidemia E78.5 Essential tremor G25.0 Chronic rhinitis 12/31/14 J31.0 Deviated nasal septum 11/26/14 J34.2 Dupuytren's disease 07/17/07 M72.0 Essential hypertension 03/18/13 I10 Hypertrophy of both inferior nasal turbinates J34.3 Chronic nasal congestion R09.81 Internal and external thrombosed hemorrhoids K64.5, K64.8 Medical History Medical History (Updated 02/24/22 @ 15:01 by Kelby Amato) Brief depressive adjustment reaction (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 states this was a long time ago Everardo hematuria (07/17/07) History of inhalational exposure to toxin History of tobacco use quit 1977, 60 packyr hx Polyp of colon 07/01/13; 2 TUBULAR ADENOMAS; DR. ULRICH Surgical History Surgical History (Updated 02/27/22 @ 07:39 by Cristela Aldrich) Fasciectomy, Palmar 10/12/14 DR. ACOSTA; LEFT LITTLE AND RING FINGERS History of shoulder surgery Right rotator cuff repair Hx of colonoscopy Ruptured Quad Tendon Repair (12/06/12) Left. Tonsillectomy and adenoidectomy Tobacco Smoking/Tobacco Use Status: Former Tobacco Use Passive smoking exposure: Yes Second hand exposure: Yes Alcohol Alcohol Intake: current Alcohol intake frequency: a few times a week Alcohol type: hard liquor Substance Use Substance use: Never Substance use type: does not use Vital Signs and Lab Results Lab Results Blood Type / Crossmatch: No Data to Display Complete Blood Count: No Data to Display Complete Metabolic Panel: No Data to Display Liver Function Panel: No Data to Display Coagulation Panel: No Data to Display Cardiac Panel: No Data to Display Arterial Blood Gas: No Data to Display Venous Blood Gas: No Data to Display Pancreas Panel: No Data to Display Thyroid Panel: No Data to Display Infectious Disease: No Data to Display Blood Cultures: No Data to Display Toxicology Panel: No Data to Display Imaging and Studies Imaging and Studies Study information below may be from another EMR and interpreted by another provider. Please see original notes in EMR for more complete details. EKG Summary: EKG PATIENT NAME: Trung Cruz #: [id number] ORDERING PROVIDER: Ben Diaz #: [id number] PRIMARY CARE PROVIDER:YVETTE DANIELS MD DATE/TIME OF SERVICE: 05/26/21 1346 : 1950PERFORMING LOCATION: [facility] APPROVED REPORT Exam: Resting ECG Reason for Exam: Chest discomfort Patient Location: O HR:52 bpm ECG Measurements Heart Rate 52 AXIS LA 200 P 71 QRSd 88 QRS 33 QT 445 T20 QTc 413 Conclusion Sinus bradycardia...rate< 60 Late transition Stress Test Summary: Stress ECG Conclusion 1. The resting electrocardiogram showed vertical axis, poor R wave progression 2. The patient exercised on the Floyd protocol and completed a workload of 9.5 METS, stopping due to fatigue 3. Normal heart rate and blood pressure response to exercise. The patient achieved 90% of maximal predicted heart rate for age 4. There was no electrocardiographic evidence of myocardial ischemia 5. Atrial and ventricular ectopic beats were noted 6. See MPI report Correa Treadmill Score is 7.5 which is Low risk. Echocardiogram Summary: Patient Name: Trung Cruz #: [id number]: Ordering Provider: Ben Diaz DOAccount #: [id number]: REG I Primary Care Provider: Yvetet Daniels M.D.Date of Exam: 06/09/21Sex: Admission Date: 06/09/21 : 1950 Age: 70 APPROVED REPORT EXAM: Comprehensive 2D, Doppler, and color-flow Echocardiogram Patient Location: Out-Patient Fruit Picker: Bertha Chavez RDCS (AE) Indications: Dyspnea on exertion, Pre operative exam Other Information Study Quality: Adequate Conclusion Normal left ventricular wall thickness and chamber size. Estimated ejection fraction is 60%. Wall motion is normal Grossly normal right ventricular size and systolic function Both atria are normal in size Aortic valve is trileaflet and mildly sclerotic with trace regurgitation There is no other additional structural or hemodynamically significant valvular disease Wall motion Left Ventricle The left ventricle is normal size. The left ventricular systolic function is normal. The left ventricular ejection fraction is within the normal range. There is normal left ventricular wall thickness. There is normal LV segmental wall motion. There is no ventricular septal defect visualized. LVEF is 58%. Right Ventricle Right ventricle is grossly normal in size. Right ventricular systolic function is grossly normal. The RVSP is 26.7 mmHg. Atria The left atrium size is normal. The right atrium size is normal. The interatrial septum is intact with no evidence for an atrial septal defect. Aortic Valve The Aortic valve is mildly sclerotic. Aortic valve is trileaflet. There is no aortic valvular stenosis. Trace aortic regurgitation. Mitral Valve The mitral valve is normal in structure. No evidence of mitral valve stenosis. Trace mitral regurgitation. Tricuspid Valve The tricuspid valve is normal in structure. There is no tricuspid valve stenosis. Mild tricuspid regurgitation. Pulmonic Valve The pulmonary valve is normal in structure. There is no pulmonic valvular stenosis. There is no pulmonic valvular regurgitation. Great Vessels The aortic root is normal in size. The ascending aorta is normal in size. Aortic arch is normal in caliber. IVC is normal in size and collapses >50% with inspiration. Pericardium There is no pericardial effusion. Pulmonary Function Summary: Pulmonary Function Test PATIENT NAME: Trung Cruz RUNIT #: [id number] ADMITTING PROVIDER: Linette Garcia M.D. PRIMARY CARE PROVIDER:YVETTE DANIELS MD DATE OF ADMIT: 10/03/21 : 1950 Date of service: 10/03/21 Time of Service: 14:58 Pulmonary Function Test Result Requesting Provider Yvette Daniels Indications: FRANCES Interpretation Spirometry: There is no airflow limitation. There is no significant bronchodilator response. Lung Volumes: Normal lung volumes. Diffusion Capacity: Normal diffusion. Airway Pressure: Normal airways resistance. Impression Normal pulmonary function testing. Clinical Correlation therefore is recommended. Anesthesia Assessment and Plan Anesthesia History Personal History: No History of Anesthesia Complications Family History: No Family History of Anesthesia Complications Exercise Tolerance Exercise Tolerance: Metabolic Equivalents>4 Pertinent Negatives Pertinent Negatives: No Symptoms of GERD, No Major Cardiovascular Symptoms or Complaints, No Major Pulmonary Symptoms or Complaints and No History of CVA/TIA Cardiac & Pulmonary Exam Cardiac Exam: Normal S1/S2 Heart Sounds Pulmonary Exam: Clear Bilateral Breath Sounds Implantable Cardiac Device Does patient have a Pacemaker or an ICD?: No Airway Exam Known Difficult Airway: No Mallampati Class: 2 Mouth Opening: Normal (> 3cm) Thyromental Distance: Greater than 3 cm Neck Range of Motion: Limited ROM Neck Circumference: Normal Teeth Condition: Normal Dentition ASA Classification ASA Score: ASA 2 Emergency Case?: No NPO Status NPO Status: NPO Clears >2 hours, Solids >8 hours Anesthesia Plan Resuscitation Status: Full Code Anesthesia Technique: General Anesthesia Airway Planned: Endotracheal Tube Monitors Used: Standard Monitors
[2022-02-27] MEDS: Lactated Ringers 1,000 ML 80 ML IV (07:50)
--- NOTE | 2022-02-27 08:02 | W.PM.DSUDISC ---
Date of service: 02/27/22 Time of Service: 08:02 Discharge Plan Disposition Patient Disposition: Home Discharge Details Attending Provider: Jose Banegas Primary Care Provider: Yvette Daniels Home Meds and New Rx's Prescriptions: New cephalexin 750 mg capsule 750 mg PO BID 7 Days Qty: 14 0RF No Action amlodipine [Norvasc] 5 mg tablet 5 mg PO QAM Qty: 90 4RF lisinopril 20 mg tablet 20 mg PO DAILY Qty: 90 4RF pravastatin 20 mg tablet 20 mg PO DAILY Qty: 90 4RF tamsulosin 0.4 mg capsule 0.4 mg PO DAILY AM Qty: 90 3RF hydrocortisone 2.5 % cream with perineal applicator 1 applic VT BID-QID PRN (Reason: hemorrhoids) Qty: 30 1RF aspirin [Aspir-Low] 81 mg Tablet,Delayed Release (Dr/Ec) 81 mg PO DAILY AM acetaminophen [Tylenol] 325 mg Capsule 325 mg PO PRN PRN Discharge Instructions Additional Instructions: May resume aspirin after 1 week. Tylenol and ibuprofen for pain control. My cell phone number is [phone]. Please call with any questions or concerns. If you cannot reach me and feel this is an emergency, please proceed to the emergency room. Stand Alone Forms: ENT-Lola InstrWhit Banegas Referrals: Jose Banegas MD [ [facility] STAFF PHYSICIAN] - (Appointment at 7:30 AM, 03/02/2022 () at my office.) Discharge Orders Discharge Orders: Discharge Order (Routine); Ordered 02/27/22 Ordered By: Jose Banegas
[2022-02-27] MEDS: ceFAZolin 2 GM/50 ML BAG IVPB (08:27)
[2022-02-27] MEDS: Lidocaine 1% Pres-Free W/EPI 1/200,000 10 ML VIAL (08:40)
[2022-02-27] MEDS: Cocaine Nasal 4% 4 ML BTL (08:40)
[2022-02-27] MEDS: Bacitracin 30 GM TUBE (09:11)
--- NOTE | 2022-02-27 09:29 | ROE_ITS ---
Date of service: 02/27/22 Time of Service: 09:29 Operative Note Operative Note DATE OF PROCEDURE: 02/27/22 PRE-OP DIAGNOSIS: Chronic nasal obstruction, deviated nasal septum, inferior turbinate hypertrophy POST-OP DIAGNOSIS: same PROCEDURE: Septoplasty, bilateral inferior turbinate cautery reduction SURGEON: Jose Banegas ANESTHESIA TYPE: General LMA/ETT Refer to Anesthesia Record ESTIMATED BLOOD LOSS: 25 PATHOLOGY: other (Septal cartilage and bone) COMPLICATIONS: None Patient was transported to: PACU Patient's condition: stable Implants: Desai splints Indications: Patient with the above problems. This is failed to respond to medical management. Options were explained to the patient. He wished to proceed with the above procedure. Consent was filled out and signed prior to surgery. H&P was reviewed. There have been no changes. Realistic expectations following the surgery were reviewed as well. Findings: Markedly deviated nasal septum, bilateral inferior to hypertrophy that appeared to be primarily mucosal and submucosal Procedure Description: After obtaining an adequate level of general endotracheal anesthesia the patient was positioned in the supine position and prepped and draped in appropriate fashion. 1% lidocaine with 1/200,000 epinephrine was injected the septum bilaterally and then cocaine soaked nasal pledgets placed in the nasal cavity bilaterally. After allowing 5 minutes to elapse, a left-sided hemitransfixion incision was made and submucosal and subperiosteal planes were developed on the left. The septum was found to be highly fragmented, with pre-existing disruption of the osteocartilaginous junction posteriorly, and displacement of the quadrangular cartilage from the maxillary crest. Septum anteriorly was bowed to the right and posteriorly to the left. A Maury knife was then used to incise the quadrangular cartilage anteriorly and submucoperiosteal and submucoperichondrial planes were developed along the septum posteriorly. A strong dorsal and columellar strut were left. A swivel blade was used to excise the quadrangular cartilage and then accommodation of Sae's and Kevyn's were used to remove the deviated bony nasal septum posteriorly. No through and through rents were created. A small drain hole was made on the right to allow any bloody drainage to occur. There was no significant bleeding after the procedure was performed. Following this the hemitransfixion incision was closed with a single chromic suture. Mucosa along both sides of the septum appeared viable. Attention was then turned to the inferior turbinates. These were examined revealing that it appeared to be more of a mucosal redundancy. Given his age and the anatomy, the inferior turbinates were lateralized using a [place] elevator and the medial aspects cauterized along the medial inferior aspects using electrocautery suction catheter set on 15 W coagulation. Once been accomplished bilaterally the [place] elevator passed freely from the anterior nares to the nasopharynx without restriction bilaterally. Septum is inspected revealing no evidence of septal hematoma or continued bleeding. Desai splints were placed along the septum bilaterally and sutured into place using a 3-0 Prolene suture in a quilting fashion anteriorly. Care was taken not to approximate this stitch too tightly. Patient was then awakened and by anesthesia after ensuring that the nasal tip appeared stable. He was then transported to recovery room in stable condition. I was present after entire case.
[2022-02-27] MEDS: fentaNYL 100 MCG/2 ML VIAL IVP (09:43)
--- NOTE | 2022-02-27 11:09 | W.ANESPOSTOP ---
Postoperative Evaluation Date, Time and Location Date Performed: 02/27/22 Time Performed: 11:00 Patient Location: Day Surgery Unit Vital Signs Most Recent Imported Vital Signs: Most Recent Vital Signs Temp Pulse Resp BP Pulse Ox 36.1 C L 52 L 16 103/71 95 02/27/22 09:59 02/27/22 09:59 02/27/22 09:59 02/27/22 09:59 02/27/22 09:59 Pain Score Most Recent Pain Score: Most Recent Pain Score Pain Level 4 02/27/22 09:59 Assessment Mental Status: Awake (Alert & Oriented to Patient Baseline) Airway and Respiratory Function: Patent airway with normal (patient baseline) respiratory exam Cardiovascular Function: Hemodynamically Stable Hydration Status: Adequately Hydrated Nausea & Vomiting: No Nausea or Vomiting Pain: Pain is tolerable per patient Peripheral Nerve Block: Patient did not receive a nerve block
== END 2022-02-27 10:58 | disposition home or self-care (01) ==
PROVIDERS: PCP Family Medicine; Visit Provider Otolaryngology
PROC: (CPT 30520; principal; 2022-02-27 08:15)
DX: J34.2 Deviated nasal septum (principal); J34.3 Hypertrophy of nasal turbinates; R09.81 Nasal congestion
CPT/HCPCS: 30520; 30801; J0690; J1100; J2405; J2704; J3010

== ENCOUNTER 2022-05-26 01:16 | Outpatient (CLI) | payer BC, SELFPAY ==
[2022-05-26 12:37] LABS: ALT 27 U/L (16-63); AST 18 U/L (15-37); Albumin 3.9 g/dL (3.4-5.0); Alkaline Phosphatase 76 U/L (46-116); Bilirubin, Direct 0.2 mg/dL (0.0-0.2); Bilirubin, Total 0.7 mg/dL (0.2-1.0); Total Protein 7.5 g/dL (6.4-8.2)
== END 2022-05-26 01:17 | disposition home or self-care (01) ==
PROVIDERS: PCP Family Medicine; Visit Provider Family Medicine
DX: I10 Essential (primary) hypertension (principal); B35.1 Tinea unguium; Z79.899 Other long term (current) drug therapy
CPT/HCPCS: 36415; 80076

== ENCOUNTER 2022-07-03 02:18 | Outpatient (CLI) | payer BC, SELFPAY ==
[2022-07-03 13:54] LABS: ALT 21 U/L (16-63); AST 16 U/L (15-37); Albumin 3.8 g/dL (3.4-5.0); Alkaline Phosphatase 87 U/L (46-116); Bilirubin, Direct 0.1 mg/dL (0.0-0.2); Bilirubin, Total 0.3 mg/dL (0.2-1.0); Total Protein 7.2 g/dL (6.4-8.2)
== END 2022-07-03 02:19 | disposition home or self-care (01) ==
LOC: LOS 02:18
PROVIDERS: PCP Family Medicine; Visit Provider Family Medicine
DX: B35.1 Tinea unguium (principal); I10 Essential (primary) hypertension; Z79.899 Other long term (current) drug therapy; G25.0 Essential tremor
CPT/HCPCS: 36415; 80076

== ENCOUNTER 2022-07-28 01:50 | Outpatient (CLI) | payer BC, SELFPAY ==
[2022-07-28 12:39] LABS: ALT 31 U/L (16-63); AST 20 U/L (15-37); Albumin 3.9 g/dL (3.4-5.0); Alkaline Phosphatase 83 U/L (46-116); Bilirubin, Direct 0.1 mg/dL (0.0-0.2); Bilirubin, Total 0.6 mg/dL (0.2-1.0); Total Protein 7.4 g/dL (6.4-8.2)
== END 2022-07-28 01:51 | disposition home or self-care (01) ==
LOC: LOS 01:51
PROVIDERS: PCP Family Medicine; Visit Provider Family Medicine
DX: B35.1 Tinea unguium (principal)
CPT/HCPCS: 36415; 80076

== ENCOUNTER 2022-08-03 02:22 | Outpatient (CLI) | payer BC, SELFPAY ==
[2022-08-03 12:14] LABS: ESR 5 mm/hr (0-20)
[2022-08-03 12:16] LABS: Abs Immature Grans 0.02 10^3/uL (0.0-0.06); Absolute Basophil Count 0.04 10^3/uL (0.0-0.2); Absolute Eosinophil Count 0.11 10^3/uL (0.0-0.7); Absolute Lymphocyte Count 1.33 10^3/uL (1.2-3.4); Absolute Monocyte Count 0.52 10^3/uL (0.1-0.8); Absolute Neutrophil Count 3.67 10^3/uL (1.2-6.7); Basophils % 0.7; Eosinophils % 1.9; HCT 43.4 % (40.0-50.0); HGB 14.7 g/dL (13.5-17.5); Immature Grans % 0.4; Lymphocytes % 23.4; MCHC 33.9 % (32.0-36.0); MCV 89 fL (80-95); MPV 9.6 fL (8.0-11.0); Monocytes % 9.1; Neutrophils % 64.5; Platelet Count 198 10^3/uL (130-400); RDW-SD 42.5 fL; WBC 5.69 10^3/uL (4.4-10.8)
[2022-08-03 12:43] LABS: C-Reactive Protein 0.45 mg/dL (0.0-0.3); Creatine Kinase 242 U/L (39-308); TSH (W/Ref FT4) 2.42 uIU/mL (0.36-3.74)
[2022-08-04 15:03] LABS: ANA Interpretation Negative (Negative)
[2022-08-04 17:35] LABS: JO 1 Ab, IgG <0.2 U
== END 2022-08-03 02:23 | disposition home or self-care (01) ==
LOC: LBN 02:22 → LOS 08:18
PROVIDERS: PCP Family Medicine; Visit Provider Family Medicine
DX: E03.9 Hypothyroidism, unspecified (principal); R21 Rash and other nonspecific skin eruption; R25.1 Tremor, unspecified; R79.89 Other specified abnormal findings of blood chemistry
CPT/HCPCS: 36415; 82550; 85652; 84443; 85025; 86038; 86140; 86235

== ENCOUNTER 2022-08-25 14:35 | Outpatient (REF) | payer BC, SELFPAY ==
--- NOTE | 2022-08-25 14:00 | SKI_PTH ---
PATIENT: Trung Cruz LOC: [facility] U#:[id number] AGE/SX: 72/M ROOM: RE08/25/[address]: Yvette Daniels : 1950 BED: DIS: 08/25/2022 SPEC #: [id number] RECD: 08/28/22 12:33 STATUS: MELVIN REPastor #: [id number] LANA: 08/25/22 14:[address]: Yvette Daniels DEPT: Surgical Specimen RECD BY: Danielle Pineda Tissues: 1 - SKIN BIOPSY(SHAVE/PUNCH) Procedures: SKIN LEVEL 4 Comments: [id number]
== END 2022-08-25 14:36 | disposition home or self-care (01) ==
LOC: LBN 14:35
PROVIDERS: PCP Family Medicine; Visit Provider Family Medicine
DX: L30.8 Other specified dermatitis (principal); L85.8 Other specified epidermal thickening; L11.8 Other specified acantholytic disorders
CPT/HCPCS: 88305

== ENCOUNTER 2022-09-11 08:23 | Day surgery (SDC) | payer BC, SELFPAY ==
--- NOTE | 2022-09-10 18:08 | W.PM.DSUDISC ---
Date of service: 09/11/22 Time of Service: 10:00 Discharge Plan Disposition Patient Disposition: Home Condition: Good Discharge Details Reason For Visit: Screening colonoscopy Attending Provider: Tim Ortiz Primary Care Provider: Yvette Daniels Home Meds and New Rx's Prescriptions: Continued amlodipine [Norvasc] 5 mg tablet 5 mg PO QAM Qty: 90 4RF lisinopril 20 mg tablet 20 mg PO DAILY Qty: 90 4RF pravastatin 20 mg tablet 20 mg PO DAILY Qty: 90 4RF tamsulosin 0.4 mg capsule 0.4 mg PO DAILY AM Qty: 90 3RF hydrocortisone 2.5 % cream with perineal applicator 1 applic VT BID-QID PRN (Reason: hemorrhoids) Qty: 30 1RF Advil Cold and Sinus 30-200 mg capsule 1 cap PO DIRECTED PRN fluticasone propionate 50 mcg/actuation spray,suspension 1 spray intranasal BID Qty: 16 1RF Rx Instructions: administer into each nostril aspirin [Aspir-Low] 81 mg Tablet,Delayed Release (Dr/Ec) 81 mg PO DAILY AM acetaminophen [Tylenol] 325 mg Capsule 325 mg PO PRN PRN Discontinued bisacodyl [Dulcolax (bisacodyl)] 5 mg tablet,delayed release (DR/EC) 5 mg PO ONCE Qty: 4 0RF Rx Instructions: Take per colonoscopy instructions provided by ordering providers office polyethylene glycol 3350 17 gram/dose powder 17 g PO ONCE Qty: 238 0RF Rx Instructions: Take per colonoscopy instructions provided by ordering providers office Discharge Instructions Additional Instructions: Currently, he had a great screening colonoscopy today. The quality of your prep was excellent. We had great visualization. I did not see anything out of the ordinary. I did not find any tumors or polyps. Based on the type of polyp that you had removed before (tubular adenoma) combined with a negative screening colonoscopy today, your next colonoscopy should be in 10 years. 1. If tolerated, consume a soft, low fiber diet for 1-2 days. 2[address] Do not drive, drink alcohol, operate machinery, make critical decisions, or do activities that require coordination or balance for 24 hours. 3. Because air was put into your colon during the procedure, expelling air from your rectum (passing gas or farting) is normal. 4. You may not have a bowel movement for 1-3 days because of the colonoscopy prep. This is normal. 5. Go directly to the emergency room if you notice any of the following: Develop chills (warm to touch), or if you have a thermometer and your temperature is above 101 Difficulty breathing or difficultly swallowing Persistent vomiting Severe abdominal pain, other than gas cramps Severe chest pain Black, tarry stools Any bleeding ? exceeding one tablespoon 6. Call your physician if the site where your intravenous was started becomes red, swollen, painful, and warm to touch. 7. Your physician has reviewed your pre-procedure medications. Please continue to take those medications as previously ordered. You will be given specific information/education regarding any changes to your medications before leaving. Activity:: Activity as Tolerated Diet:: As Tolerated Discharge Orders Discharge Orders: Discharge Order (Routine); Ordered 09/10/22 Ordered By: Tim Ortiz DS: Diagnosis Discharge Diagnosis (1) Screen for colon cancer: Status: Acute Asessment and Plan: Negative screening colonoscopy
--- NOTE | 2022-09-10 18:10 | COLE_ITS ---
Date of service: 09/11/22 Time of Service: 10:01 Colonoscopy Report Date of procedure: 09/11/22 Pre-op diagnosis general: Screening colonoscopy Post-op diagnosis procedure note: other (Negative screening colonoscopy) Procedure: Colonoscopy Surgeon: Tim Ortiz Anesthesia Type: General:No Airway Estimated blood loss (mL): 0 Pathology: none sent Complications: None Disposition: same day Indications: Sai is 72 years old and he is here for his next screening colonoscopy Prep: Miralax/Dulcolax Procedure Start Time: 09:35 Procedure End Time: 09:52 Retraction Time: 13 Findings: Negative screening colonoscopy Procedure Description: After the induction of monitored anesthetic care, and with the patient in left lateral decubitus position, I began by performing an external anorectal exam.? Perineum and skin were normal, as was the anal verge.? There was no evidence of external hemorrhoids.? Next, I performed a digital rectal exam.? I did not appreciate any abnormal findings.? Next, I advanced a colonoscope into the re ctal vault.? I performed retroflexion.? This appeared normal.? Using insufflation, I then advanced the colonoscope beyond the rectal folds and into the sigmoid colon before advancing towards the cecum.? The quality of the prep was excellent.? The scope was noted to be in the cecum by identification of the ileocecal valve and appendiceal orifice.? I then began withdrawing the colonoscope using repeated irrigation as necessary for full evaluation of the colonic mucosa. ?Once the scope was withdrawn to the level of the rectum, great care was taken to examine portions of the rectal folds.? I did not see any signs of tumors or polyps anywhere within the large intestine. Finally, the scope was withdrawn and the patient was brought to the same-day surgery recovery unit as the anesthetic wore off. ?The findings and instructions were shared with the patient prior to discharge.
--- NOTE | 2022-09-10 18:30 | ANES.PREOP_ITS ---
General Info Date of Service Date Performed: 09/11/22 Height: 5 ft 7 in Weight: 90.265 kg Body Mass Index (BMI): 31.1 Surgical Procedure: Operation Date: 09/11/22 09:50 Proposed Procedure Side Surgeon morelia Ortiz MD Meds Allergies and Home Medications Allergies Allergy/AdvReac Type Severity Reaction Status Date / Time gabapentin Allergy Intermediate Pt.reports Verified 09/11/22 08:44 whole body rash primidone Allergy Intermediate Skin Rash Verified 09/11/22 08:44 Home Medication Medication Instructions Recorded acetaminophen 325 mg capsule 325 mg PO PRN PRN 03/22/19 (Tylenol) aspirin 81 mg tablet,delayed 81 mg PO DAILY AM 03/22/19 release (Aspir-Low) amlodipine 5 mg tablet (Norvasc) 5 mg PO QAM #90 tabs 11/16/21 lisinopril 20 mg tablet 20 mg PO DAILY #90 tabs 11/16/21 pravastatin 20 mg tablet 20 mg PO DAILY #90 tab-caps 11/16/21 tamsulosin 0.4 mg capsule 0.4 mg PO DAILY AM #90 caps 11/16/21 hydrocortisone 2.5 % topical cream 1 applic MD BID-QID PRN 02/17/22 with perineal applicator hemorrhoids #30 grams fluticasone propionate 50 1 spray intranasal BID #16 grams 06/27/22 mcg/actuation nasal spray,suspension pseudoephedrine-ibuprofen 30 1 cap PO DIRECTED PRN 06/27/22 mg-200 mg capsule (Advil Cold and Sinus) Current Visit Medications: Current Medications Generic Name Dose Route Start Last Admin Trade Name Freq PRN Reason Stop Dose Admin Hyoscyamine Sulfate 0.125 mg 09/10/22 18:11 Hyoscyamine 0.125 Mg Sl/Oral/Chew SL 10/10/22 18:10 DIRECTED PRN Ringer's Solution 1,000 mls @ 80 mls/hr 09/11/22 06:00 IV 09/11/22 23:59 [facility] IV Miscellaneous Supplies 1 each 09/11/22 06:00 Iv Access IV 09/11/22 23:59 DIRECTED [facility] Ondansetron HCl 4 mg 09/10/22 18:11 Ondansetron 4 Mg/2 Ml Vial IVP 10/10/22 18:10 Q4H PRN PRN Nausea / Vomiting Sodium Chloride 0 ml 09/11/22 06:00 Normal Saline Flush 10 Ml Syr IV 09/11/22 23:59 PRN PRN Sodium Chloride 0 ml 09/11/22 06:00 Normal Saline 10 Ml Vial IJ 09/11/22 23:59 DIRECTED PRN Sterile Water 0 ml 09/11/22 06:00 Water,Injection,Sterile 10 Ml Vial IJ 09/11/22 23:59 DIRECTED PRN PFSH Active Problems Active Problems: Problem Status Onset Code Screen for colon cancer Z12.11 Benign prostatic hypertrophy N40.0 Sensorineural hearing loss of both ears H90.3 Movement disorder G25.9 Hyperlipidemia E78.5 Essential tremor G25.0 Dupuytren's disease 07/17/07 M72.0 Essential hypertension 03/18/13 I10 Internal and external thrombosed hemorrhoids K64.5, K64.8 Impacted cerumen, bilateral H61.23 Onychomycosis B35.1 Medical History Medical History Brief depressive adjustment reaction (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 states this was a long time ago Chronic rhinitis (12/31/14) Deviated nasal septum (11/26/14) Everardo hematuria (07/17/07) History of inhalational exposure to toxin History of tobacco use quit 1977, 60 packyr hx Hypertrophy of both inferior nasal turbinates Polyp of colon 07/01/13; 2 TUBULAR ADENOMAS; DR. ULRICH Surgical History Surgical History Fasciectomy, Palmar 10/12/14 DR. ACOSTA; LEFT LITTLE AND RING FINGERS H/O nasal septoplasty With bilateral inferior turbinoplasty, 02/27/2022 History of shoulder surgery Right rotator cuff repair Hx of colonoscopy Ruptured Quad Tendon Repair (12/06/12) Left. Tonsillectomy and adenoidectomy Tobacco Smoking/Tobacco Use Status: Former Tobacco Use Passive smoking exposure: Yes Second hand exposure: Yes Alcohol Alcohol Intake: current Alcohol intake frequency: a few times a week Alcohol type: hard liquor Substance Use Substance use: Never Substance use type: does not use Vital Signs and Lab Results Vital Signs Most Recent Vital Signs in EMR: Temp Pulse Resp BP Pulse Ox 36.8 C 72 18 127/69 98 09/11/22 08:51 09/11/22 08:51 09/11/22 08:51 09/11/22 08:51 09/11/22 08:51 Lab Results Blood Type / Crossmatch: No Data to Display Complete Blood Count: No Data to Display Complete Metabolic Panel: No Data to Display Liver Function Panel: No Data to Display Coagulation Panel: No Data to Display Cardiac Panel: No Data to Display Arterial Blood Gas: No Data to Display Venous Blood Gas: No Data to Display Pancreas Panel: No Data to Display Thyroid Panel: No Data to Display Infectious Disease: No Data to Display Blood Cultures: No Data to Display Toxicology Panel: No Data to Display Imaging and Studies Imaging and Studies Study information below may be from another EMR and interpreted by another provider. Please see original notes in EMR for more complete details. EKG Summary: EKG PATIENT NAME: Trung Cruz #: [id number] ORDERING PROVIDER: Ben Diaz #: [id number] PRIMARY CARE PROVIDER:YVETTE DANIELS MD DATE/TIME OF SERVICE: 05/26/21 1346 : 1950PERFORMING LOCATION: [facility] APPROVED REPORT Exam: Resting ECG Reason for Exam: Chest discomfort Patient Location: O HR:52 bpm ECG Measurements Heart Rate 52 AXIS MD 200 P 71 QRSd 88 QRS 33 QT 445 T20 QTc 413 Conclusion Sinus bradycardia...rate< 60 Late transition Stress Test Summary: Stress ECG Conclusion 1. The resting electrocardiogram showed vertical axis, poor R wave progression 2. The patient exercised on the Floyd protocol and completed a workload of 9.5 METS, stopping due to fatigue 3. Normal heart rate and blood pressure response to exercise. The patient ac hieved 90% of maximal predicted heart rate for age 4. There was no electrocardiographic evidence of myocardial ischemia 5. Atrial and ventricular ectopic beats were noted 6. See MPI report Correa Treadmill Score is 7.5 which is Low risk. Echocardiogram Summary: Patient Name: Trung Cruz #: [id number]: HAKEEM Ordering Provider: Ben Diaz #: [id number]: REG CLI Primary Care Provider: Yvette Daniels M.D.Date of Exam: 06/09/21Sex: M Admission Date: 06/09/21 : 1950 Age: 70 APPROVED REPORT EXAM: Comprehensive 2D, Doppler, and color-flow Echocardiogram Patient Location: Out-Patient [employer] Assistant: Bertha Chavez RDCS (AE) Indications: Dyspnea on exertion, Pre operative exam Other Information Study Quality: Adequate Conclusion Normal left ventricular wall thickness and chamber size. Estimated ejection fraction is 60%. Wall motion is normal Grossly normal right ventricular size and systolic function Both atria are normal in size Aortic valve is trileaflet and mildly sclerotic with trace regurgitation There is no other additional structural or hemodynamically significant valvular disease Wall motion Left Ventricle The left ventricle is normal size. The left ventricular systolic function is normal. The left ventricular ejection fraction is within the normal range. There is normal left ventricular wall thickness. There is normal LV segmental wall motion. There is no ventricular septal defect visualized. LVEF is 58%. Right Ventricle Right ventricle is grossly normal in size. Right ventricular systolic function is grossly normal. The RVSP is 26.7 mmHg. Atria The left atrium size is normal. The right atrium size is normal. The interatrial septum is intact with no evidence for an atrial septal defect. Aortic Valve The Aortic valve is mildly sclerotic. Aortic valve is trileaflet. There is no aortic valvular stenosis. Trace aortic regurgitation. Mitral Valve The mitral valve is normal in structure. No evidence of mitral valve stenosis. Trace mitral regurgitation. Tricuspid Valve The tricuspid valve is normal in structure. There is no tricuspid valve stenosis. Mild tricuspid regurgitation. Pulmonic Valve The pulmonary valve is normal in structure. There is no pulmonic valvular stenosis. There is no pulmonic valvular regurgitation. Great Vessels The aortic root is normal in size. The ascending aorta is normal in size. Aortic arch is normal in caliber. IVC is normal in size and collapses >50% with inspiration. Pericardium There is no pericardial effusion. Pulmonary Function Summary: Pulmonary Function Test PATIENT NAME: Trung Cruz #: [id number] ADMITTING PROVIDER: Linette Garcia M.D. PRIMARY CARE PROVIDER:YVETTE DANIELS MD DATE OF ADMIT: 10/03/21 : 1950 Date of service: 10/03/21 Time of Service: 14:58 Pulmonary Function Test Result Requesting Provider Yvette Daniels Indications: FRANCES Interpretation Spirometry: There is no airflow limitation. There is no significant bronchodilator response. Lung Volumes: Normal lung volumes. Diffusion Capacity: Normal diffusion. Airway Pressure: Normal airways resistance. Impression Normal pulmonary function testing. Clinical Correlation therefore is recommended. Anesthesia Assessment and Plan Anesthesia History Personal History: No History of Anesthesia Complications Family History: No Family History of Anesthesia Complications Exercise Tolerance Exercise Tolerance: Metabolic Equivalents>4 Cardiac & Pulmonary Exam Cardiac Exam: Normal S1/S2 Heart Sounds Pulmonary Exam: Clear Bilateral Breath Sounds Implantable Cardiac Device Does patient have a Pacemaker or an ICD?: No Airway Exam Known Difficult Airway: No Mallampati Class: 2 Mouth Opening: Normal (> 3cm) Thyromental Distance: Greater than 3 cm Neck Range of Motion: Limited ROM Neck Circumference: Normal Teeth Condition: Normal Dentition ASA Classification ASA Score: ASA 2 Emergency Case?: No NPO Status NPO Status: NPO Clears >2 hours, Solids >8 hours Anesthesia Plan Resuscitation Status: Full Code Anesthesia Technique: General Anesthesia Airway Planned: Natural Airway Monitors Used: Standard Monitors Preoperative Comments:: 72 yo male for colo. Sig PMHx: HTN, former smoker, s/p septoplasty, Previous Anes: - knee I/D, fent/midaz, prop, natural airway, no issues. - septoplasty, glide 3 grade 2b
[2022-09-11 08:51] VITALS: BP 127/69; PULSE 72; RESP 18; TEMP 36.8; O2SAT 98
[2022-09-11] MEDS: Lactated Ringers 1,000 ML 80 ML IV (09:05)
[2022-09-11 09:13] VITALS: BMI 31.1
[2022-09-11 09:58] VITALS: BP 110/78; PULSE 61; RESP 16; TEMP 36.2; O2SAT 96
--- NOTE | 2022-09-11 10:03 | W.ANESPOSTOP ---
Postoperative Evaluation Date, Time and Location Date Performed: 09/11/22 Time Performed: 10:03 Patient Location: Day Surgery Unit Vital Signs Most Recent Imported Vital Signs: Most Recent Vital Signs Temp Pulse Resp BP Pulse Ox 36.2 C L 61 16 110/78 96 09/11/22 09:58 09/11/22 09:58 09/11/22 09:58 09/11/22 09:58 09/11/22 09:58 Pain Score Most Recent Pain Score: Most Recent Pain Score Pain Level 0 09/11/22 08:51 Assessment Mental Status: Awake (Alert & Oriented to Patient Baseline) Airway and Respiratory Function: Patent airway with normal (patient baseline) respiratory exam Cardiovascular Function: Hemodynamically Stable Hydration Status: Adequately Hydrated Nausea & Vomiting: No Nausea or Vomiting Pain: Pt. Denies Any Pain Peripheral Nerve Block: Patient did not receive a nerve block
[2022-09-11 10:21] VITALS: BP 111/69; PULSE 52; RESP 16; TEMP 36.1; O2SAT 96
== END 2022-09-11 10:31 | disposition home or self-care (01) ==
PROVIDERS: PCP Family Medicine; Visit Provider Surgery
PROC: 0DJD8ZZ Inspection of Lower Intestinal Tract, Via Natural or Artificial Opening Endoscopic (ICD-10-PCS; CPT 45378; principal; 2022-09-11 09:45)
DX: Z12.11 Encounter for screening for malignant neoplasm of colon (principal); Z86.010 Personal history of colon polyps
CPT/HCPCS: 45378

== ENCOUNTER 2022-12-07 04:00 | Outpatient (CLI) | payer BC, SELFPAY ==
[2022-12-07 12:49] LABS: Anion Gap 9.4 mmol/L (3-11); BUN 18 mg/dL (7-18); CO2 25.6 mmol/L (21.0-32.0); CREATININE 0.9 mg/dL (0.70-1.30); Calcium 9.1 mg/dL (8.5-10.1); Chloride 104 mmol/L (98-107); Estimated GFR 89.62 (mL/min/1.73m2); Glucose 102 mg/dL (74-106); Potassium 4.2 mmol/L (3.5-5.1); Sodium 139 mmol/L (136-145)
== END 2022-12-07 04:01 | disposition home or self-care (01) ==
LOC: LOS 04:01
PROVIDERS: PCP Family Medicine; Visit Provider Family Medicine
DX: I10 Essential (primary) hypertension (principal)
CPT/HCPCS: 36415; 80048

== ENCOUNTER 2023-11-30 09:38 | Outpatient (CLI) | payer BC, SELFPAY ==
--- NOTE | 2023-11-30 09:15 | DI.CT_ITS ---
Exam(s) CT ABDOMEN PELVIS W EXAM: CT ABDOMEN PELVIS W CLINICAL HISTORY: RLQ ab pain R10.31 TECHNIQUE: Imaging Protocol: Axial computed tomography images with coronal and sagittal reformatted images were created and reviewed. CONTRAST MATERIAL: Intravenous: Omnipaque 350 contrast volume:85 mL Oral: Yes COMPARISON: CT RENAL COLIC WO CONTRAST from 06/12/2012 CT,NM,TMT NM MPI REST STRESS GRP from 06/16/2021 FINDINGS: ABDOMEN: Lung Bases: Normal where visualized. Liver: Normal density. No measurable mass. Portal, Superior Mesenteric, and Splenic Veins: Unremarkable. Gallbladder and Biliary Tract: No radiodense calculus or dilation. Pancreas: Normal density, no abnormal calcifications or inflammatory process. Spleen: Normal. Adrenals: No masses seen. Kidneys: Normal size, contour and axis. No radiodense stones or obstructive uropathy. No masses seen. Abdominal Aorta: Abdominal portion non-dilated. Atherosclerotic calcification is present. Bowel: There is diverticulosis of the colon but no evidence of acute diverticulitis. There is no bow el wall thickening or obstruction. Appendix is unremarkable. Peritoneal Cavity: There is a trace amount of free fluid in the right lower quadrant. No free air.No focal fluid collection is seen to suggest an abscess. Lymph Nodes: Within normal limits. Bones: Within normal limits for the patient's age. Soft Tissues: There is a moderate-sized fat containing left inguinal hernia. There is a moderate siz e right inguinal hernia containing fat and a small amount of fluid. PELVIS: Bladder: Symmetric distention, no gross wall thickening. Reproductive Organs: The prostate gland is enlarged. Lymph Nodes: Within normal limits. Bones: Within normal limits for the patient's age. IMPRESSION: 1. Normal appendix. 2. Colonic diverticulosis without evidence of acute diverticulitis. 3. No evidence of bowel obstruction. 4. Bilateral inguinal hernias which are moderate in size. The left contains fat. The right hernia c ontains both fat and a small amount of free fluid. 5. Enlarged prostate gland. 6. Trace amount of fluid in the right lower quadrant. No abscess. RADIATION DOSE DELIVERED: 638.01mGy.cm Total DLP DATA REPOSITORY: All CT scans at this facility are submitted to the National Radiology Data Registry (NRDR) Dose Index Registry (DIR) with the [employer] (ACR). RADIATION OPTIMIZATION: All CT scans at this facility use at least one of these dose optimization te chniques: automated exposure control; mA and/or kV adjustment per patient size (includes targeted exa ms where dose is matched to clinical indication); or iterative reconstruction.
--- NOTE | 2023-11-30 09:15 | DI.RAD_ITS ---
Exam(s) XR KNEE LT 3V AP,LAT,BRAVO EXAM: XR KNEE LT 3V AP,LAT,BRAVO CLINICAL HISTORY: chronic LEFT KNEE PAIN M25.562. TECHNIQUE: 2D digital imaging was performed of the left knee. Three images were obtained. AP, late ral and PA tunnel views were obtained. COMPARISON: CR LEFT KNEE 3 VIEW COMPLETE from 05/16/2017 FINDINGS: BONES: No acute fracture is present. No bony destructive lesion is seen. Postsurgical changes are ag ain seen in the superior patella. JOINTS: The knee is normally aligned. No joint effusion is seen. No loose body. SOFT TISSUE: Dystrophic calcifications are seen adjacent to the lateral femoral condyle. There is al so a calcification seen adjacent to the medial femoral condyle. These may reflect prior ligamentous injury. IMPRESSION: No acute abnormality. DATA REPOSITORY: RADIATION DOSE DELIVERED:
[2023-11-30] MEDS: Barium Sulfate 2% W/V-Creamy Vanilla Smoothie 450 ML BTL PO (09:48)
[2023-11-30] MEDS: Barium Sulfate 2% W/V-Berry Smoothie 450 ML BTL PO (09:58)
[2023-11-30 10:24] LABS: Abs Immature Grans 0.03 10^3/uL (0.0-0.06); Absolute Basophil Count 0.04 10^3/uL (0.0-0.2); Absolute Eosinophil Count 0.03 10^3/uL (0.0-0.7); Absolute Monocyte Count 0.66 10^3/uL (0.1-0.8); Absolute Neutrophil Count 6.17 10^3/uL (1.2-6.7); Basophils % 0.5 %; Eosinophils % 0.4 %; HCT 46.7 % (40.0-50.0); HGB 15.5 g/dL (13.5-17.5); Immature Grans % 0.4 %; Lymphocytes % 13.7 %; MCH 29.7 pg (27.0-33.0); MCHC 33.2 % (32.0-36.0); MCV 90 fL (80-95); MPV 9.2 fL (8.0-11.0); Monocytes % 8.2 %; Neutrophils % 76.8 %; Platelet Count 198 10^3/uL (130-400); RBC 5.22 10^6/uL (4.36-5.78); RDW 12.1 % (11.8-14.1); RDW-SD 40.2 fL; WBC 8.03 10^3/uL (4.4-10.8)
[2023-11-30 10:40] LABS: ALT 31 U/L (16-63); AST 21 U/L (15-37); Albumin 3.8 g/dL (3.4-5.0); Alkaline Phosphatase 81 U/L (46-116); Anion Gap 8.9 mmol/L (3-11); BUN 11 mg/dL (7-18); Bilirubin, Total 0.81 mg/dL (0.2-1.0); CO2 28.1 mmol/L (21.0-32.0); CREATININE 1.1 mg/dL (0.70-1.30); Calcium 8.9 mg/dL (8.5-10.1); Chloride 104 mmol/L (98-107); Estimated GFR 70.01 (mL/min/1.73m2); Glucose 98 mg/dL (74-106); Lipase 26 U/L (16-77); Potassium 4.2 mmol/L (3.5-5.1); Sodium 141 mmol/L (136-145); Total Protein 7.6 g/dL (6.4-8.2)
[2023-11-30 10:57] LABS: Bilirubin Negative (Negative); Blood Trace-intact (Negative); Clarity Clear (Clear); Glucose Negative (Negative); Ketones Negative (Negative); Leukocyte Esterase Negative (Negative); Nitrite Negative (Negative); Specific Gravity 1.015 (1.005-1.025); pH 5.5 (5-8)
[2023-11-30 11:07] LABS: Bacteria Negative HPF (Negative); C & S Indicated? No; Casts Negative LPF (Negative); Crystals Negative HPF (Negative); Epithelial Cells Negative HPF (Negative); Mucus Trace (Negative); RBC 0-2 HPF (0-2); WBC 0-2 HPF (0-5)
[2023-11-30] MEDS: Omnipaque 350 MG/ML 100 ML BTL 85 ML IJ (12:14)
[2023-11-30] MEDS: Normal Saline - Diluent 50 ML VIAL IJ (12:14)
== END 2023-11-30 09:58 ==
LOC: DI 09:38
PROVIDERS: PCP Family Medicine; Visit Provider Family Medicine
DX: M25.562 Pain in left knee; Z00.00 Encounter for general adult medical examination without abnormal findings; R30.0 Dysuria; K57.51 Diverticulosis of both small and large intestine without perforation or abscess with bleeding
CPT/HCPCS: 36415; 73562; 80053; 83690; 74177; 81003; 81015; 85025; J3490

== ENCOUNTER 2024-03-28 13:22 | Outpatient (CLI) | payer BC, SELFPAY ==
--- NOTE | 2024-03-28 12:30 | DI.RAD_ITS ---
Exam(s) XR HUMERUS RT EXAM: XR HUMERUS RT CLINICAL HISTORY: Pain in rt arm, M79.601. TECHNIQUE: 2D digital imaging was performed. COMPARISON: CR XR humerus RT from 04/21/2018 FINDINGS: Two views No evidence of fracture nor dislocation of the humerus. Distally there are bony excrescences off bot h medial and lateral epicondyles probably element of bilateral epicondylitis. Mild degenerative changes are noted in the glenohumeral joint. Bone density normal. No osseous lesi ons. IMPRESSION: Bilateral epicondylitis. DATA REPOSITORY: RADIATION DOSE DELIVERED:
--- NOTE | 2024-03-28 12:30 | DI.RAD_ITS ---
Exam(s) XR SHOULDER RT COMPLETE 2+V EXAM: XR SHOULDER RT COMPLETE 2+V CLINICAL HISTORY: RT shoulder pain, M25.511. TECHNIQUE: 2D digital imaging was performed. COMPARISON: CR XR SHOULDER RT COMPLETE 2+V from 11/27/2018 FINDINGS: Five views. No evidence of acute fracture or dislocation. There are mild-moderate degenerative changes in the gl enohumeral joint and moderate degenerative changes in the AC joint. Subacromial space is not diminis hed but on 1 image there is a subtle suggestion of a calcific density adjacent to the lateral aspect of the humeral head. This may indicate small bony excrescence at this level or element of calcific r otator cuff tendinitis. Bone density normal. No significant osseous lesions. IMPRESSION: Calcific density related to the outer aspect of the humeral head as described above. This is either a small bony excrescence or related to the rotator cuff such as calcific tendinitis. DATA REPOSITORY: RADIATION DOSE DELIVERED:
== END 2024-03-28 13:42 ==
LOC: DI 13:25
PROVIDERS: PCP Family Medicine; Visit Provider Nurse Practitioner Family
DX: M75.31 Calcific tendinitis of right shoulder (principal); M77.01 Medial epicondylitis, right elbow
CPT/HCPCS: 73030; 73060

== ENCOUNTER 2024-05-23 12:49 | Outpatient (REF) | payer BC, SELFPAY ==
--- NOTE | 2024-05-23 09:00 | SKI_PTH ---
PATIENT: Trung Cruz LOC: [facility] U#:[id number] AGE/SX: 73/M ROOM: RE05/23/[address]: Yvette Daniels : 1950 BED: DIS: 05/23/2024 SPEC #: [id number] RECD: 05/23/24 12:53 STATUS: MELVIN SALINAS #: [id number] LANA: 05/23/24 09:[address]: Yvette Daniels DEPT: Surgical Specimen RECD BY: Mariam House Tissues: 1 - SKIN BIOPSY(SHAVE/PUNCH) Procedures: SKIN LEVEL 4 Comments: [id number]
== END 2024-05-23 12:50 | disposition home or self-care (01) ==
LOC: LBN 12:49
PROVIDERS: PCP Family Medicine; Visit Provider Family Medicine
DX: D04.4 Carcinoma in situ of skin of scalp and neck
CPT/HCPCS: 88305

== ENCOUNTER 2024-07-31 15:02 | Emergency (ER) | payer BC, SELFPAY ==
[2024-07-31] VITALS (9 sets, daily range): BP systolic 119–135; BP diastolic 59–67; PULSE 58–64; RESP 16; TEMP 36.7; O2SAT 95–97
--- NOTE | 2024-07-31 15:00 | DI.CT_ITS ---
Exam(s) CT HEAD CERVICAL SPINE WO EXAM: CT HEAD CERVICAL SPINE WO CLINICAL HISTORY: fall off ladder. TECHNIQUE: Imaging Protocol: Axial computed tomography images with coronal and sagittal reformatted images were created and reviewed COMPARISON: CT HEAD WITHOUT CONTRAST from 04/06/2016 FINDINGS: Head CT Ventricles and Extra axial spaces: Normal in size and morphology for the patient's age. Hemorrhage: None. Cerebral parenchyma: No evidence of mass or acute infarct. No significant white matter changes. No significant atrophy. Midline shift: None. Brainstem/Cerebellum: Normal. Calvarium: Normal. Visualized Paranasal sinuses/Mastoids: Mild mucosal thickening of the left maxillary sinus. Soft tissues: Left parietal scalp laceration. No foreign body. Cervical Spine CT BONES: Vertebral body heights are maintained. Alignment is normal. There is no evidence of acute fracture. Degenerative disc changes and facet degenerative changes are seen . SOFT TISSUES: No paraspinal hematoma. The airway appears intact. No pneumothorax is seen at the lung apices. IMPRESSION: Head CT: No acute abnormality. C-spine CT: Degenerative changes, no acute abnormality. RADIATION DOSE DELIVERED: Total DLP DATA REPOSITORY: All CT scans at this facility are submitted to the National Radiology Data Registry (NRDR) Dose Index Registry (DIR) with the [employer] (ACR). RADIATION OPTIMIZATION: All CT scans at this facility use at least one of these dose optimization techniques: automated exposure control; mA and/or kV adjustment per patient size (includes targeted exams where dose is matched to clinical indication); or iterative reconstruction.
--- NOTE | 2024-07-31 15:00 | DI.RAD_ITS ---
Exam(s) XR SHOULDER LT COMPLETE 2+V EXAM: XR SHOULDER LT COMPLETE 2+V CLINICAL HISTORY: pain s/p fall off ladder. TECHNIQUE: 2D digital imaging was performed. Three views. COMPARISON: CR XR SHOULDER RT COMPLETE 2+V from 03/28/2024 FINDINGS: BONES: No acute fracture is present. No bony destructive lesion is seen. Degenerative spurring at the greater tuberosity. JOINTS: No dislocation present. There are moderate degenerative changes of the AC joint. No humeral joint space is maintained. There is spurring at the glenoid. SOFT TISSUE: Normal. IMPRESSION: Degenerative changes. No acute abnormality. DATA REPOSITORY: RADIATION DOSE DELIVERED:
--- NOTE | 2024-07-31 15:15 | DI.RAD_ITS ---
Exam(s) XR HAND RT COMPLETE EXAM: XR HAND RT COMPLETE CLINICAL HISTORY: pain s/p fall. TECHNIQUE: 2D digital imaging was performed. Three views. COMPARISON: No exams were available for comparison FINDINGS: Exam it is limited by suboptimal profiling of the phalanges, particularly of the index finger. BONES: No acute fracture is present. No bony destructive lesion is seen. JOINTS: No dislocation present. Severe degenerative changes are noted in the distal interphalangeal joints as well as 1st carpal metacarpal joint. SOFT TISSUE: Normal. IMPRESSION: Degenerative changes. No visible acute fracture. DATA REPOSITORY: RADIATION DOSE DELIVERED:
--- NOTE | 2024-07-31 15:17 | W.ED.GENAD ---
Discharge Plan Disposition Patient Disposition: Home Condition: Stable Discharge Details Clinical Impression: Fall, Laceration of scalp, Laceration of hand, right, Contusion of left shoulder, Cervical strain Primary Care Provider: Yvette Daniels ED Provider: Abdoulaye Parham Home Meds and New Rx's Prescriptions: Continued hydrocortisone 2.5 % cream with perineal applicator 1 applic NE BID-QID PRN (Reason: hemorrhoids) Qty: 30 1RF Advil Cold and Sinus 30-200 mg capsule 1 cap PO DIRECTED PRN lisinopril 20 mg tablet 20 mg PO DAILY Qty: 90 4RF tamsulosin 0.4 mg capsule 0.4 mg PO DAILY AM Qty: 90 3RF propranolol 20 mg tablet 20 mg PO BID Qty: 180 3RF pravastatin 20 mg tablet 20 mg PO DAILY Qty: 90 4RF amlodipine [Norvasc] 5 mg tablet 5 mg PO QAM Qty: 90 4RF fluticasone propionate 50 mcg/actuation spray,suspension 1 spray intranasal BID Qty: 16 12RF Rx Instructions: administer into each nostril acetaminophen [Tylenol] 325 mg Capsule 325 mg PO PRN PRN Discharge Instructions Additional Instructions: Your CAT scans and x-ray did not show any concerning findings at this time. You had 2 estela placed in your scalp and 4 sutures placed in your right hand. Return in 7 to 10 days for evaluation for removal of these. Return sooner if you have spreading redness from the wounds or yellow-white discharge. Also return to the emergency department if you feel significantly more ill or have severe worsening pain or new symptoms such as persistent vomiting. HPI General Mode of arrival: EMS. Date/Time Provider Initiated Documentation: 07/31/24 15:08. Limitations to Documentation: no limitations. Information obtained by: patient. History of Present Illness 74 year old M presents to the emergency department with the chief complaint of fell off ladder, left shoulder pain, described as moderate, Quality is described as aching, and is localized to the left and upper extremity. Patient started experiencing this hour(s) (1) and it has been constant. No relieving factors improve symptom(s), No exacerbating factors reported . Patient notes denies chest pain and shortness of breath. Patient did receive the following treatments prior to arrival, none Related Data Home Medications ?Medication ?Instructions ?Recorded ?Confirmed acetaminophen 325 mg capsule 325 mg PO PRN PRN 03/22/19 06/25/24 (Tylenol) hydrocortisone 2.5 % topical cream 1 applic NE BID-QID PRN 02/17/22 06/25/24 with perineal applicator hemorrhoids #30 grams pseudoephedrine-ibuprofen 30 1 cap PO DIRECTED PRN 06/27/22 06/25/24 mg-200 mg capsule (Advil Cold and Sinus) lisinopril 20 mg tablet 20 mg PO DAILY #90 tabs 11/30/23 06/25/24 tamsulosin 0.4 mg capsule 0.4 mg PO DAILY AM #90 caps 11/30/23 06/25/24 pravastatin 20 mg tablet 20 mg PO DAILY #90 tab-caps 01/07/24 06/25/24 amlodipine 5 mg tablet (Norvasc) 5 mg PO QAM #90 tabs 02/11/24 06/25/24 fluticasone propionate 50 1 spray intranasal BID #16 grams 06/23/24 06/25/24 mcg/actuation nasal spray,suspension propranolol 20 mg tablet 20 mg PO BID #180 tabs 06/24/24 06/25/24 Previous Rx's ?Medication ?Instructions ?Recorded hydrocortisone 2.5 % topical cream 1 applic NE BID-QID PRN 02/17/22 with perineal applicator hemorrhoids #30 grams lisinopril 20 mg tablet 20 mg PO DAILY #90 tabs 11/30/23 tamsulosin 0.4 mg capsule 0.4 mg PO DAILY AM #90 caps 11/30/23 pravastatin 20 mg tablet 20 mg PO DAILY #90 tab-caps 01/07/24 amlodipine 5 mg tablet (Norvasc) 5 mg PO QAM #90 tabs 02/11/24 fluticasone propionate 50 1 spray intranasal BID #16 grams 06/23/24 mcg/actuation nasal spray,suspension propranolol 20 mg tablet 20 mg PO BID #180 tabs 06/24/24 Allergies Allergy/AdvReac Type Severity Reaction Status Date / Time gabapentin Allergy Intermediate Pt.reports Verified 06/25/24 09:44 whole body rash primidone Allergy Intermediate Skin Rash Verified 06/25/24 09:44 General Stated Complaint: Fall/Non TraumaCriteria YASMIN: 3 Review of Systems All systems reviewed & are unremarkable except as noted in HPI and below Constitutional Constitutional: Denies chills, Denies fever(s) and Denies weakness Cardiovascular Cardiovascular: Denies chest pain and Denies dyspnea Respiratory Respiratory: Denies cough and Denies dyspnea Gastrointestinal Gastrointestinal: Denies abdominal pain, Denies nausea and Denies vomiting Musculoskeletal Musculoskeletal: Reports arthralgias Neurologic Neurologic: Denies weakness Psychiatric Psychiatric: Denies depression Exam Const General: no acute distress Orientation: alert HENMT Head: no palpable skull fracture Ears: external ears normal General nose exam: external nose normal Mouth: moist mucous membranes Eyes General: appearance normal, both eyes and all related structures Neck Neck: normal visual inspection and nontender Chest Chest: no tenderness Resp Effort & Inspection: normal respiratory effort and able to speak in complete sentences Cardio Rate: regular rate GI Palpation: nontender Skin General skin exam: no rashes or lesions noted Neuro General: patient alert and patient oriented x3 Extrem General: no cyanosis and no edema Psych Mental Status: mental status grossly normal Course Vital Signs Vital signs: Vital Signs Temperature 36.7 C 07/31/24 15:05 Pulse 64 07/31/24 15:05 Respiratory Rate 16 07/31/24 15:05 Blood Pressure 119/67 07/31/24 15:05 Pulse Oximetry 95 07/31/24 15:05 Temperature 36.7 C 07/31/24 15:05 Temperature Source Oral 07/31/24 15:05 Pulse 64 07/31/24 15:05 Respiratory Rate 16 07/31/24 15:05 Blood Pressure 119/67 07/31/24 15:05 Blood Pressure Position Supine 07/31/24 15:05 Pulse Oximetry 95 07/31/24 15:05 Oxygen Delivery Method Room Air 07/31/24 15:05 Oxygen Flow Rate 0 07/31/24 15:05 Procedure Laceration Laceration 1: Date of Procedure: 07/31/24 Time of procedure: 17:27 Standard Time Out Performed: Yes Patient Consented: Verbally Site: scalp Description: linear Depth: simple, single layer Local anesthetic: Lidocaine 2% Amount of anesthesia used (mL): 5 Pre-repair:: wound explored and irrigated extensively Skin layer closed with: estela (2) Laceration 2: Date of Procedure: 07/31/24 Time of procedure: 17:28 Standard Time Out Performed: Yes Patient Consented: Verbally Site: hand Side (If applicable): right Description: linear Depth: simple, single layer Local anesthetic: Lidocaine 2% Amount of anesthesia used (mL): 4 Pre-repair:: wound explored and irrigated extensively Skin layer closed with: nylon Suture size: 5-0 Number of sutures:: 4 Technique: simple, interrupted Medical Decision Making 74-year-old male comes in after he fell off a ladder. He says he was coming down the ladder holding a piece of metal and thought he was on the last step but actually 2 more steps to go so he stepped back and fell backwards. He is his head on the ground. He denies any preceding symptoms to the fall. He has a 1 cm superficial scalp laceration on the superior portion of his head. He has a GCS of 15. Pupils are equal and reactive to light. He has no midline C-spine T-spine or L-spine tenderness. He has pain in the left shoulder with minimal range of motion due to pain. He has no tenderness elsewhere in the extremities. Intact distal pulses and sensation. HE also has a superficial 1cm laceration to the right proximal thumb between the IP and mcp joint that runs vertically, he has full rom of the joints so doubt tendon injury No abdominal chest tenderness. I suspect left shoulder contusion versus fracture versus dislocation will obtain x-ray of the shoulder and also his right hand and also obtain CT head and C-spine given his age and the signs of trauma to his head. Imaging shows no acute findings. Patient is stable and has no new pain elsewhere. I closed his scalp wound after cleaning with 2 estela and he had a lack on the right thumb previously mentioned that I closed with 4 sutures and he tolerated this well. 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 Actinic keratoses (Acute) Rotator cuff tear, right (Acute) Osteoarthritis of right shoulder (Acute) Left knee pain (Acute) Conductive hearing loss, external ear (Acute) Onychomycosis (Acute) s/p treatment with terbinafine 05/2022 Impacted cerumen, bilateral (Acute) Essential hypertension (Chronic 03/18/13) Dupuytren's disease (Chronic 07/17/07) left hand. Essential tremor (Chronic) had adverse reactions to primidone (rash) and propranolol (FRANCES) Hyperlipidemia (Chronic) Movement disorder (Chronic) Sensorineural hearing loss of both ears (Chronic) has hearing aids Benign prostatic hypertrophy (Chronic) 1x/night nocturia Medical History Hypertrophy of both inferior nasal turbinates History of inhalational exposure to toxin History of tobacco use quit 1977, 60 packyr hx Everardo hematuria (07/17/07) Polyp of colon 07/01/13; 2 TUBULAR ADENOMAS; DR. ULRICH Normal colonoscopy 08/2022 Deviated nasal septum (11/26/14) Chronic rhinitis (12/31/14) Chest pain (01/11/03) NEGATIVE STRESS TEST Per pt. states this was a long time ago Brief depressive adjustment reaction (06/10/12) Surgical History H/O nasal septoplasty With bilateral inferior turbinoplasty, 02/27/2022 Hx of colonoscopy (~08/2022) History of shoulder surgery Right rotator cuff repair Tonsillectomy and adenoidectomy Ruptured Quad Tendon Repair (12/06/12) Left. Fasciectomy, Palmar 10/12/14 DR. ACOSTA; LEFT LITTLE AND RING FINGERS Family History Mother , age 86 Stroke Dementia Father , age 90 Stroke Dementia Brother Heart disease Grandfather Neoplasm Sister No problems noted. Social History Smoking/Tobacco Use Status: Former Tobacco Use tobacco type: cigarettes Quit Date: 02/12/95 Tobacco: How many years used: 8 Quit status: quit date established (quit using tobacco 45 years ago) Second Hand Exposure: Yes Smoking risk assessment performed?: Yes Alcohol Intake: current Alcohol Intake frequency: a few times a week Alcohol type: hard liquor Drug use: Never Substance use type: does not use Details: alcohol: t-3, couple drinks Adopted: No Caregiver/Support person: No Foster care: No Household members: spouse Housing: house Number of Children: 2 number of grandchildren: 4 Communication Needs: None Education Level: high school current occupation: [employer] Pets and animals: No Sexually active: Yes Do you think of yourself as: straight/heterosexual Current gender identity: male What is your relationship status?: How often do you talk on the phone with friends or family?: three or more times per week How often do you get together with friends or relatives?: once per week How often do you attend orthodox or islam services?: 4 or more times per year Do you belong to any clubs or organized social groups?: no Panel score (0-1 are the most socially isolated patients): 3 Queenie/Tenriism: No preference Seatbelt use: always Carbon monox detector in home: Yes Firearms in home: No Do you feel safe at home: Yes Do you feel safe in your relationship?: Yes Victim of physical abuse: No Victim of emotional abuse: No Victim of sexual abuse: No Would you like helpful sources: No Additional Social history: Unable to assess [facility]
[2024-07-31] MEDS: Lidocaine/Epinephri/Tetracaine Topical Gel 3 ML TP (15:23)
[2024-07-31] MEDS: Diph,Pertuss(Acell),Tet Vac/Pf 0.5 ML SYR IM (15:51)
[2024-07-31] MEDS: Ketorolac 15 MG/ML VIAL IVP (16:49)
== END 2024-07-31 17:44 | disposition home or self-care (01) ==
PROVIDERS: Emergency Provider Emergency Medicine; PCP Family Medicine
DX: S01.01XA Laceration without foreign body of scalp, initial encounter (principal); S61.411A Laceration without foreign body of right hand, initial encounter; S40.012A Contusion of left shoulder, initial encounter; S16.1XXA Strain of muscle, fascia and tendon at neck level, initial encounter; W11.XXXA Fall on and from ladder, initial encounter; Z23 Encounter for immunization
CPT/HCPCS: 99283; 99284; 12001; 90471; 90715; 70450; 72125; 73030; 73130; J1885

== ENCOUNTER 2024-08-07 10:31 | Outpatient (REF) | payer BC, SELFPAY | END 2024-08-07 10:32 | disposition home or self-care (01) | LOC: LBN 10:31 | PROVIDERS: PCP Family Medicine; Visit Provider Nurse Practitioner Family | DX: L98.9 Disorder of the skin and subcutaneous tissue, unspecified (principal) | CPT/HCPCS: 87070; 87205 ==

== ENCOUNTER 2024-08-07 10:42 | Outpatient (CLI) | payer BC, SELFPAY ==
--- NOTE | 2024-08-07 10:30 | DI.RAD_ITS ---
Exam(s) XR CLAVICLE LT EXAM: XR CLAVICLE LT CLINICAL HISTORY: evaluate pathology,clavicle pain,m89.8x1 TECHNIQUE: 2D digital imaging was performed. Two views COMPARISON: No exams were available for comparison FINDINGS: BONES: No acute fracture is present. No bony destructive lesion is seen. JOINTS: AC joint not widened. There is spurring at the acromioclavicular joint. Is also spurring at the margin of the glenoid. SOFT TISSUE: Unremarkable. IMPRESSION: Degenerative changes of the AC joint. DATA REPOSITORY: RADIATION DOSE DELIVERED:
== END 2024-08-07 11:02 ==
LOC: DI 10:42
PROVIDERS: PCP Family Medicine; Visit Provider Nurse Practitioner Family
DX: M89.8X1 Other specified disorders of bone, shoulder (principal)
CPT/HCPCS: 73000

== ENCOUNTER 2024-09-09 03:14 | Outpatient (CLI) | payer BC, SELFPAY ==
--- NOTE | 2024-09-09 08:00 | DI.MRI_ITS ---
Exam(s) MR UPPER JOINT LT WO EXAM: MR UPPER JOINT LT WO CLINICAL HISTORY: left shoulder injury, contusion lt shoulder, S40.012A TECHNIQUE: Multiplanar multisequence MRI of the shoulder was performed. COMPARISON: CR XR SHOULDER LT COMPLETE 2+V from 07/31/2024 CR XR CLAVICLE LT from 08/07/2024 FINDINGS: MARROW:There is no evidence of fracture, Hill-Sachs deformity, nor ominous osseous lesions. GLENOHUMERAL JOINT: There is a significant size glenohumeral joint effusion with direct extension into the subacromial region (see below). There are only mild degenerative changes in the glenohumeral joint. Minimal loss of articular cartilage. No degenerative subarticular cysts and there also no osteophytes. There are no obvious loose intra-articular bodies. ROTATOR CUFF MECHANISM: AC JOINT/ACROMIUM: There are moderate degenerative changes in the AC joint, including downgoing osteophytes and there is some impingement upon the rotator cuff mechanism at this level.. There is no evidence of os acromiale. Supraspinatus: There is a prominent full-thickness tear of the supraspinatus with retraction of the musculotendinous junction to the mid humeral head level. The AP measurement of the tear is over 3 cm. There is a small calcific density above the greater tuberosity consistent with what is seen on recent plain films and consistent with pre-existing calcific rotator cuff tendinitis. There is prominent atrophy of the supraspinatus muscle belly. Infraspinatus: Some insertional tendinitis and articular side partial thickness tear. No full-thickness tear. Minimal atrophy. Teres Minor: Intact. No evidence of tear nor muscle atrophy. Subscapularis/anterior cuff: There is signal abnormality within the insertional tendon anterior to the lesser tuberosity with some attenuation of the tendon but there does not appear to be a full-thickness tear at this level. BICEPS TENDON: Exhibits normal position within the intertubercular groove. There is some attenuation of the intra-articular aspect of the biceps tendon but it does not appear detached from the anterosuperior aspect of the labrum. There is fluid in the biceps tendon sheath which is in continuity with the glenohumeral joint fluid. There are no loose bodies within the tendon sheath. LABRUM: There is some attenuation of the superior labrum posterior to the biceps tendon attachment site. There is also signal abnormality in the posterior superior labrum as well as within the posterior labrum consistent with labral tearing at this level. There also appears to be some attenuation of the anterior labrum but difficult to delineate an actual tear. There is no obvious tear of the inferior labrum nor of the inferior glenohumeral ligament. The fluid in the inferior recess does not extend beyond the confines of the inferior glenohumeral ligament. QUADRILATERAL SPACE: No evidence of mass in the region of the axillary nerve and dorsal circumflex humeral vessels. Visualized triceps muscle at this level appears unremarkable. IMPRESSION: 1. There is a large full-thickness tear of the supraspinatus tendon with retraction of the musculotendinous junction to the mid humeral head level. The AP dimension of this prominent tear is over 3 cm. Small calcification in the subacromial space at level the tear indicates most probably that there was pre- existing calcific rotator cuff tendinitis. There is significant impingement at the AC joint level. 2. Partial articular side surface tearing of the infraspinatus and there is also some attenuation of the multipennate insertional fibers of the subscapularis- anterior cuff tendon anterior to the lesser tuberosity. 3. There is a prominent glenohumeral joint effusion which extends through the full-thickness rotator cuff tear defect into the subacromial space as well as down the long head biceps tendon sheath. There are no loose intra-articular bodies evident and only minimal synovial thickening. 4. The intra-articular aspect of the biceps tendon is attenuated but not completely torn and the tendon is not displaced from the intra-articular groove. 5. There is attenuation of the superior labrum and some tearing in the posterior labrum suggested on the axial images. There is no evidence of paralabral cyst. 6. There are only mild degenerative changes in the glenohumeral joint. There are advanced degenerative changes in the AC joint. DATA REPOSITORY:
== END 2024-09-09 03:34 ==
LOC: DI 03:14
PROVIDERS: PCP Family Medicine; Visit Provider Family Medicine
DX: S40.012A Contusion of left shoulder, initial encounter (principal)
CPT/HCPCS: 73221

== ENCOUNTER 2024-10-24 07:03 | Day surgery (SDC) | payer BC, SELFPAY ==
[2024-10-24] VITALS (41 sets, daily range): BP systolic 88–155; BP diastolic 36–89; PULSE 47–54; RESP 11–21; TEMP 36.2–37.1; O2SAT 93–100; BMI 35.0
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
--- NOTE | 2024-10-24 06:57 | W.PM.OP ---
Operative Note Operative Note PRE-OP DIAGNOSIS: Left: 1. Rotator cuff arthropathy 2. Partial proximal biceps tearing POST-OP DIAGNOSIS: same PROCEDURE: Left: 1. Reverse total shoulder arthroplasty, CPT # 33543 2. Open biceps tenodesis, CPT # 13710 The occupational therapy assistant was medically required as this procedure involves retraction, protection of neurovascular structures, and manipulation of multiple instruments and implants at the same time, which cannot be done without a skilled occupational therapy assistant. SURGEON: Manoj Lorenzana DIRECTOR OF ENVIRONMENTAL SERVICES: [place] Nguyen ANESTHESIA TYPE: Local By Surgeon, General LMA/ETT and Primary Nerve Block Refer to Anesthesia Record ESTIMATED BLOOD LOSS: 200 COMPLICATIONS: None Patient was transported to: PACU Patient's condition: stable Implants: [employer] modular glenoid system baseplate 24 mm, 10 degree standard full wedge [employer] modular glenoid system central post 30 mm [employer] modular glenoid system peripheral locking screws 36 mm inferior, 36 mm superior, 20 mm posterior, 20 mm anterior [employer] modular glenoid system glenosphere 42 +4 mm lateralized [employer] humeral stem 135 degrees size 10 [employer] suture cup size 42 neutral offset [employer] humeral insert size 42 +6 mm constrained Indications: Please see complete medical record for details. Findings: Massive supraspinatus infraspinatus rotator cuff tearing with abundant bursitis. High-grade partial supraspinatus tearing and partial subscapularis thinning moderately tearing. Significant cartilage pain labral degenerative tearing. Superior shoulder rotator cuff arthropathy type instability. Procedure Description: In the operating room, general anesthesia was induced. The patient was positioned beachchair on the operating room table. All bony prominences were well-padded. Preoperative antibiotics were administered. The shoulder was prepped and draped in the usual sterile fashion for shoulder arthroplasty. The correct patient, procedure, and side of the procedure were all verified prior to incision. The deltopectoral approach was preinjected with 0.25% bupivacaine containing epinephrine and taken to the anterior shoulder. Care was taken to bluntly dissect the interval between the deltoid and pectoralis major muscles and to identify the cephalic vein within its fat stripe. The the vein was mobilized laterally. Subdeltoid space and conjoined tendon were freed of adhesions. The long head of the biceps tendon was identified just lateral to the lesser tuberosity. The uppermost margin of the pectoralis major tendon was released from the proximal humerus. The long head of the biceps tendon was tenodesed in situ using SutureTape in a [id number] fashion securing it superior margin the pectoralis major tendon. The biceps tendon was amputated and followed proximally to identify the rotator interval. A subscapularis tenotomy was then done working on bone carefully down the anterior humeral neck with digital blunt dissection used to free up the anterior and posterior space to it in the coracoid. The supraspinatus and infraspinatus were identified and debrided off the greater tuberosity and to the level of the superior glenoid of significant tearing. Appropriate coagulation was achieved especially interiorly. The anatomic neck was cut using an oscillating saw with the humeral head bone brought back table in case there was a need for future bone grafting. The proximal humerus was delivered from the wound with adduction and external rotation. The proximal humeral protection plate was used to provisionally confirm suture cup and glenosphere size. Reamers were started appropriately posterior to the bicipital groove taking care to maintain in line approach with the humeral canal. Sequential reaming was done from size 5 up to size 8. Next, the broaches were sequentially used to open the proximal humerus starting with a size 5 and going up to size 10 and sunk to the appropriate depth while maintaining approximately 25 degrees retroversion. There was good metaphyseal fit and rotational control of the proximal humerus with this size. The center offset guide was used to ream for the suture cup. Attention was then turned to the glenoid and retractors were placed and a circumferential release performed using the long head of the biceps remnant to remove soft tissue about the glenoid rim. Care was taken inferiorly to work on bone only between 5 and 7:00 o'clock and bluntly elevate tissues inferiorly. The VIP guide was placed on the glenoid and used to confirm placement and trajectory of the central guidepin. The guidepin was inserted and advanced just through the far cortex ensuring adequate central fixation length. The glenoid was prepared according to livestock rancher specifications for an augmented baseplate and central post. The baseplate was impacted onto the glenoid surface. The locking guide was then used to drill and place appropriately lengthed inferior, superior, anterior, and posterior screws. The lofr-elt-bwrpfsvdf reamer was used to confirm adequate peripheral reaming. The glenosphere was applied with the tin pourer and then impacted to engage the Dill taper. It was then locked with appropriate countersinking of the setscrew. The glenosphere was inspected and found to have good fit, appropriate positioning, and no soft tissue or bony impingement. Attention was then turned back to the proximal humerus. The humeral trial cup was connected. Trialing was commenced with +3 mm liner. The shoulder was reduced and taken through range of motion. Trial components were built up to +6 mm liner to achieve good stability and appropriate tension on the deltoid and conjoined tension. The trial components were removed from the proximal humerus. The wound was copiously irrigated with normal saline. The the proximal humeral stem and suture cup were assembled and brought over the proximal humerus. A small amount of vancomycin powder was distributed in the proximal humerus. The humeral component and suture cup were impacted into place. It sat appropriately. The final constrained liner was connected, constrained chosen due to age and lack of rotator cuff. The final implants were reduced and range of motion, stability, and tension confirmed to be appropriate. The shoulder was copiously irrigated with Betadine and normal saline. Vancomycin powder was distributed deeply about the shoulder and through subcutaneous tissues. The deltopectoral interval was approximated with 2-0 Monocryl burying the cephalic vein. Subcutaneous tissue was irrigated then closed using 2-0 Monocryl in a buried interrupted fashion. Skin was closed using 3-0 Monocryl in a buried subcuticular fashion. Skin glue was applied to the incision. A silver impregnated bandage was placed over the incision. The extremity was placed into a shoulder immobilizer. The patient awoke from anesthesia without complication and was taken to the recovery room in stable condition. Date of Procedure: 10/24/24
--- NOTE | 2024-10-24 07:05 | W.PM.DSUDISC ---
Date of service: 10/24/24 Discharge Plan Disposition Patient Disposition: Home Condition: Stable Discharge Details Attending Provider: Manoj Lorenzana Primary Care Provider: Yvette Daniels Home Meds and New Rx's Prescriptions: New naproxen 250 mg tablet 250 mg PO BID PRN (Reason: moderate pain and swelling) Qty: 20 0RF Rx Instructions: take with a meal oxycodone 5 mg tablet 5 - 10 mg PO .q4-6h MDD 30 mg PRN (Reason: severe pain) Qty: 18 0RF Continued hydrocortisone 2.5 % cream with perineal applicator 1 applic VA BID-QID PRN (Reason: hemorrhoids) Qty: 30 1RF lisinopril 20 mg tablet 20 mg PO DAILY Qty: 90 4RF tamsulosin 0.4 mg capsule 0.4 mg PO DAILY AM Qty: 90 3RF propranolol 20 mg tablet 20 mg PO BID Qty: 180 3RF pravastatin 20 mg tablet 20 mg PO DAILY Qty: 90 4RF amlodipine [Norvasc] 5 mg tablet 5 mg PO QAM Qty: 90 4RF fluticasone propionate 50 mcg/actuation spray,suspension 1 spray intranasal BID Qty: 16 12RF Rx Instructions: administer into each nostril acetaminophen [Tylenol] 325 mg Capsule 325 mg PO PRN PRN Discontinued Advil Cold and Sinus 30-200 mg capsule 1 cap PO DIRECTED PRN tramadol 50 mg tablet 50 mg PO Q6H PRN (Reason: pain) Qty: 20 1RF Patient Comments: 10/24/24: pt reports Tramadol ineffective. 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 You should keep your arm at your side in a relatively neutral position at all times except for gentle range of motion exercises, physical therapy, and essential activities. You should use the sling whenever you are out of the house. At home it is best to remove the sling and rest the arm on a pillow at your side or support the operative side with your other hand. A physical therapy prescription will be sent electronically to start in about 3 weeks. Standard Reverse TSA Protocol. Prescriptions: Naproxen 250 mg take 1 every 12 hours with a meal as needed for moderate pain Oxycodone 5 mg take 1-2 every 4-6 hours as needed for severe pain You may use [id number] Tylenol (acetaminophen) as needed for mild pain. These pain medications may be taken all at once or in different combinations as needed. Also, recommend Colace (docusate) as a stool softener as surgery and pain medicine cause constipation. You may try [id number]-tyv-prxprnn diphenhydramine (Benadryl) 25-50 mg nightly as a sleep aid Dressings: Leave dressing in place until follow-up. Keep clean and dry at all times. No showers please. Follow-up: 10-[address] Lorenzana You may take off the leg compression stockings this evening at home. You may also leave them on a few days longer if you have a history of leg swelling or edema. Please call the office during business hours with any questions or concerns. Let us know right away if you develop any redness, drainage, fevers, chest pain, or trouble breathing. Do not drink alcohol or drive for at least 24 hours after anesthesia. Stand Alone Forms: Anesthesia Discharge Inst., Anes.Nerve Block Instructions, Latosha Talbot ([facility]) Referrals: Manoj Lorenzana MD [ [facility] STAFF PHYSICIAN, Orthopaedic Surgical] - 11/11/24 10:15 am Discharge Orders Discharge Orders: Discharge Order (Routine); Ordered 10/24/24 Ordered By: [place] Nguyen DS: Diagnosis Discharge Diagnosis (1) Left rotator cuff tear: Status: Acute (2) Rupture of left proximal biceps tendon: Status: Acute
[2024-10-24] MEDS: Lactated Ringers 1,000 ML 30 ML IV (07:47)
--- NOTE | 2024-10-24 08:28 | W.ANESNERVE ---
Nerve Block Single Injection Procedure Date and Time Date Performed: 10/24/24 Procedure Start: 08:16 Location Where Procedure Performed Procedure Location: Day Surgery Unit Reason Performed: Postoperative Analgesia Requesting Provider: Manoj Lorenzana Timeout Performed Timeout Performed: Yes Monitoring Used ECG, Blood Pressure and SpO2 Sterility Sterility: Hand Hygiene, Surgical Cap, Surgical Mask, Sterile Gloves and Chlorhexidine Sedation Given During Procedure Sedation Given (Indicate Dose Given): Propofol IV Dose:: 25 mg Patient Mental Status Patient Mental Status: Sedate with meaningful communication Nerve Block 1st Nerve Block: Laterality: Left Block Type: Interscalene Ultrasound Image Saved?: Yes Needle / Catheter Used: 100mm SonoPlex II Local Anesthetic Bolus (Indicate Dose Given): Lidocaine used for local infiltration of skin, Bupivacaine 0.5% Dose:: 10 mL and Exparel Dose:: 10 mL Additives (Indicate Dose Given): None Ultrasound: Sterile probe cover and gel used Nerve Stimulator: No twitch or parasthesia noted < 0.5 mA (<0.8) Paresthesia: None Procedure Tolerated: No Complications Procedure Outcome: Successful Procedure Comment: Tyshawn Nerve Guard used. Performed By: Don Hall
[2024-10-24] MEDS: ceFAZolin 2 GM/50 ML BAG IVPB (10:20)
[2024-10-24] MEDS: TRANEXAMIC ACID/SOD. CHL. 1,000 MG/100 ML BAG 600 MG IVPB (10:24)
[2024-10-24] MEDS: Bupivacaine 0.25% Pres-Free W/EPI 30 ML VIAL (10:48)
[2024-10-24] MEDS: Vancomycin 1,000 MG VIAL 1000 MG (11:30)
--- NOTE | 2024-10-24 11:30 | DI.RAD_ITS ---
Exam(s) XR SHOULDER LT COMPLETE 2+V EXAM: XR SHOULDER LT COMPLETE 2+V CLINICAL HISTORY: Post-op. TECHNIQUE: 2D digital imaging was performed. COMPARISON: CR XR SHOULDER LT COMPLETE 2+V from 07/31/2024 FINDINGS: 3 postop views There is satisfactory position alignment of the components of the newly placed reverse prosthesis of the left shoulder. No fracture or loosening evident. IMPRESSION: Satisfactory postop appearance DATA REPOSITORY: RADIATION DOSE DELIVERED:
[2024-10-24] MEDS: ceFAZolin 1 GM/50 ML BAG IVPB (12:46)
--- NOTE | 2024-10-24 12:54 | W.ANESPOSTOP ---
Postoperative Evaluation Date, Time and Location Date Performed: 10/24/24 Time Performed: 12:54 Patient Location: PACU Vital Signs Most Recent Imported Vital Signs: Most Recent Vital Signs Temp Pulse Resp BP Pulse Ox 36.2 C L 51 L 13 88/43 L 97 10/24/24 08:11 10/24/24 12:50 10/24/24 12:50 10/24/24 12:49 10/24/24 12:50 Pain Score Most Recent Pain Score: Most Recent Pain Score Pain Level 0 10/24/24 08:11 Assessment Mental Status: Awake (Alert & Oriented to Patient Baseline) Airway and Respiratory Function: Patent airway with normal (patient baseline) respiratory exam Cardiovascular Function: Hemodynamically Stable Hydration Status: Adequately Hydrated Nausea & Vomiting: No Nausea or Vomiting Pain: Pain is tolerable per patient Peripheral Nerve Block: Regional nerve block not resolved at time of post operative discharge
[2024-10-24] MEDS: Lactobacillus Acidophilus CAP 1 CAP PO (14:04)
== END 2024-10-24 14:43 | disposition home or self-care (01) ==
LOC: SUR 07:03
PROVIDERS: PCP Family Medicine; Visit Provider Student in an Organized Health Care Education/Training Program
PROC: (CPT 23472; principal; 2024-10-24 07:30)
DX: S46.212A Strain of muscle, fascia and tendon of other parts of biceps, left arm, initial encounter (principal); M12.812 Other specific arthropathies, not elsewhere classified, left shoulder; I10 Essential (primary) hypertension; Z87.891 Personal history of nicotine dependence; G89.18 Other acute postprocedural pain
CPT/HCPCS: 23472; 23430; 64415; 73030; J0131; J0665; J0666; J0690; J1100; J1885; J2405; J2704; J3373

== ENCOUNTER 2024-11-05 13:12 | Outpatient (CLI) | payer BC, SELFPAY ==
--- NOTE | 2024-11-05 11:00 | DI.RAD_ITS ---
Exam(s) XR SHOULDER LT COMPLETE 2+V EXAM: XR SHOULDER LT COMPLETE 2+V CLINICAL HISTORY: F/U LEFT RTSA. TECHNIQUE: 2D digital imaging was performed. Two images were obtained. Grashey and Y views were obtained. COMPARISON: CR XR SHOULDER LT COMPLETE 2+V from 10/24/2024 FINDINGS: BONES: There are stable post operative changes of a left total reverse shoulder arthroplasty present. No fracture or dislocation. JOINTS: The orthopedic hardware is in good position. No evidence of hardware loosening. There are degenerative changes seen at the acromioclavicular joint. SOFT TISSUE: Normal. IMPRESSION: Stable left reverse total shoulder arthroplasty. DATA REPOSITORY: RADIATION DOSE DELIVERED:
== END 2024-11-05 13:13 | disposition home or self-care (01) ==
LOC: DIORS 13:12
PROVIDERS: PCP Family Medicine; Visit Provider Student in an Organized Health Care Education/Training Program
DX: M75.102 Unspecified rotator cuff tear or rupture of left shoulder, not specified as traumatic (principal)
CPT/HCPCS: 73030

== ENCOUNTER 2024-12-11 00:08 | Outpatient (CLI) | payer OTHER, SELFPAY ==
[2024-12-11 15:01] LABS: ALT 24 U/L (16-63); AST 19 U/L (15-37); Albumin 3.6 g/dL (3.4-5.0); Alkaline Phosphatase 81 U/L (46-116); Anion Gap 8.3 mmol/L (3-11); BUN 19 mg/dL (7-18); Bilirubin, Total 0.7 mg/dL (0.2-1.0); CO2 26.7 mmol/L (21.0-32.0); Calcium 8.8 mg/dL (8.5-10.1); Chloride 104 mmol/L (98-107); Glucose 141 mg/dL (74-106); Potassium 3.9 mmol/L (3.5-5.1); Sodium 139 mmol/L (136-145); Total Protein 7.2 g/dL (6.4-8.2)
== END 2024-12-11 00:09 | disposition home or self-care (01) ==
LOC: LOS 00:08
PROVIDERS: PCP Family Medicine; Visit Provider Family Medicine
DX: Z00.00 Encounter for general adult medical examination without abnormal findings (principal); I10 Essential (primary) hypertension
CPT/HCPCS: 36415; 80053

== ENCOUNTER → 2024-12-20 13:35 | Outpatient (CLI) | payer OTHER, SELFPAY ==
--- NOTE | 2024-12-20 13:30 | DI.RAD_ITS ---
Exam(s) XR LUMBAR SPINE COMPLETE EXAM: XR LUMBAR SPINE COMPLETE CLINICAL HISTORY: eval pathology. TECHNIQUE: 2D digital imaging was performed of the lumbar spine. Five images were obtained. AP, lateral, right oblique, left oblique and L5-S1 spot views were obtained. COMPARISON: No exams were available for comparison FINDINGS: BONES: No fracture or destructive lesion. There may be mild loss of height of the T10 and T11 vertebral bodies. This is of indeterminate acuity. Vertebral bodies are unremarkable. There are degenerative changes of the facets at L5-S1. There is spondylosis of the lumbar spine. DISKS: Intervertebral disc spaces are maintained. ALIGNMENT: Lumbar spinal alignment is within normal limits. No spondylolysis or spondylolisthesis. SOFT TISSUE: Atherosclerotic calcification is present. IMPRESSION: 1. No acute fracture or subluxation in the lumbar spine. 2. Mild loss of height of the T10 and T11 vertebral bodies of indeterminate acuity. Follow-up as clinically appropriate. 3. The preliminary [facility] report was reviewed. DATA REPOSITORY: RADIATION DOSE DELIVERED:
--- NOTE | 2024-12-20 14:30 | DI.RAD_ITS ---
Exam(s) XR HIP RT COMPLETE AP PELVIS EXAM: XR HIP RT COMPLETE AP PELVIS CLINICAL HISTORY: eval pathology. TECHNIQUE: 2D digital imaging was performed of the right hip. Two images were obtained. AP pelvis and lateral right hip views were obtained. COMPARISON: No exams were available for comparison FINDINGS: BONES: No acute fracture is present. No bony destructive lesion is seen. JOINTS: No dislocation present. There is mild narrowing of the hip joints bilaterally. The sacroiliac joints and symphysis pubis are unremarkable. SOFT TISSUE: Normal. IMPRESSION: 1. There is no acute fracture or dislocation present. 2. The preliminary [facility] report was reviewed. DATA REPOSITORY: RADIATION DOSE DELIVERED:
--- NOTE | 2024-12-20 15:02 | DI.[facility]_ITS ---
PROCEDURE INFORMATION: Exam: XR Lumbosacral Spine Exam date and time: 12/20/2024 2:49 PM Age: 74 years old Clinical indication: Low back pain TECHNIQUE: Imaging protocol: Radiologic exam of the lumbosacral spine. Views: 4 or 5 views. COMPARISON: CR XR HIP RT COMPLETE AP PELVIS 12/20/2024 2:47 PM FINDINGS: Bones/joints: Moderate spondylosis. Vertebral body height is well preserved in the lumbar spine. There may be mild compression deformity at the T11 level. Disc spaces appear fairly well preserved. Soft tissues: Unremarkable. IMPRESSION: No evidence for acute abnormality. Possible T11 compression deformity. Dictated and Authenticated by: Navya Ca MD. Orderin Adilia Rebolledo MD
--- NOTE | 2024-12-20 15:04 | DI.[facility]_ITS ---
PROCEDURE INFORMATION: Exam: XR Right Hip Exam date and time: 12/20/2024 2:47 PM Age: 74 years old Clinical indication: Hip pain; Right hip TECHNIQUE: Imaging protocol: Radiologic exam of the right hip. Views: 2 or 3 views hip with pelvis when performed. COMPARISON: CT ABDOMEN PELVIS W 11/30/2023 12:13 PM FINDINGS: Bones/joints: Unremarkable. No acute fracture. Soft tissues: Unremarkable. IMPRESSION: No evidence for acute abnormality to account for symptoms. Dictated and Authenticated by: Navya Ca MD. Orderin Adilia Rebolledo MD
== END ==
LOC: DI 13:35
PROVIDERS: PCP Family Medicine; Visit Provider Nurse Practitioner Family
DX: M54.50 Low back pain, unspecified (principal); M25.551 Pain in right hip
CPT/HCPCS: 72110; 73502

== ENCOUNTER → 2024-12-25 02:26 | Outpatient (CLI) | payer OTHER, SELFPAY ==
--- NOTE | 2024-12-25 07:30 | DI.MRI_ITS ---
Exam(s) MR THORACIC SPINE WO EXAM: MR THORACIC SPINE WO CLINICAL HISTORY: back pain, lower back pain, disc height loss xray,m54.9 TECHNIQUE: Multiplanar multisequence MRI of the thoracic spine was performed without intravenous contrast. COMPARISON: CR,XR XR LUMBAR SPINE COMPLETE from 12/20/2024 FINDINGS: OSSEOUS: There are no fractures thoracic vertebral bodies evident. Also no significant Schmorl's node invagination. Small benign intraosseous hemangioma noted in the posterior aspect of T7 vertebral body. A larger benign intraosseous hemangioma is noted in the T9 vertebral body, right of center. Th is measures 1.1 x 0.7 x 1.5 cm. There are no ominous osseous lesions in the thoracic vertebrae. THORACIC SPINAL CORD: There is no abnormal signal in the cervical spinal cord and no evidence of focal cord atrophy nor focal cord swelling. There is no evidence of syringomyelia nor significant spinal cord dysraphism. There is no evidence of mass at the conus medullaris. The position of the conus medullaris is at T12-L1 level. SIGNIFICANT INDIVIDUAL LEVEL FINDINGS: In the most peripheral aspect of the field of view of this study there is a disc herniation or broad annular bulging evident at the C6-7 level. AP measurement of the central canal at this level is 9 mm. There is a small posterolateral left disc bulge at the T5-T6 level. This slightly indents the thecal sac but not the spinal cord at this level. No significant central canal stenosis and no foraminal stenosis at this level. There is also a small posterolateral left disc bulge at the T6-T7 level, also without prominent central spinal canal stenosis and there is no foraminal stenosis at this level. Position of the conus medullaris is at L1 level. Is no evidence of conus mass. PARASPINAL TISSUES: No significant masses nor fluid collections evident. IMPRESSION: 1. Mild disc findings at C5-6 and C6-7 levels as described above, not associated with significant central canal stenosis nor foraminal stenosis on either side at these levels. 2. There is also significant annular bulging seen in the peripheral aspect of this study at the C6-7 level. 3. Benign small intraosseous hemangiomas noted in T7 and T9. No ominous osseous lesions. No fractures. DATA REPOSITORY:
--- NOTE | 2024-12-25 07:30 | DI.MRI_ITS ---
Exam(s) MR LUMBAR SPINE WO EXAM: MR LUMBAR SPINE WO CLINICAL HISTORY: lumbar radiculopathy, right leg worsening,back pain,m54.9. TECHNIQUE: Multiplanar multisequence MRI of the Lumbar spine was performed. COMPARISON: CR,XR XR LUMBAR SPINE COMPLETE from 12/20/2024 MR MR THORACIC SPINE WO from 12/25/2024 FINDINGS: Conus medullaris is at normal level. There is no evidence of conus mass nor subjacent clumping of intrathecal nerve roots to suggest arachnoiditis. The distal thecal sac appears unremarkable.There is no evidence of Tarlov intrasacral cysts nor other significant findings within the sacral canal Bones:There are no fractures nor ominous osseous lesions in the lumbar vertebral bodies and visualized sacrum. With respect to the individual levels... T11-12: Normal disc height. Somewhat bright T2 signal in the disc space when compared to the other discs. This may be related to the buttressing osteophytes-syndesmophytes at this level. Cannot exclude early discitis all there is no abnormal signal in the adjacent marrow and endplates of T11 and T12 vertebrae. Also no abnormal epidural collection evident. T12-L1: Preserved disc height. Large anterior right osteophytes. Posteriorly there is no disc herniation or central canal stenosis. No significant facet arthropathy. No foraminal stenosis. L1-2: Normal disc height and signal. Mild symmetrical annular bulging. No dominant disc herniation. Central canal dimensions are lower normal. Facet joints unremarkable. No foraminal stenosis. L2-3: Preserved disc height. Mild symmetrical annular bulging. No disc herniation. Central canal dimensions are lower normal. No significant facet arthropathy nor final stenosis on either side at this level. L3-4: Normal disc height. Mild annular bulging which extends into the floor of the exiting neural foramina bilaterally. However, there is no evidence of dominant disc herniation nor central canal stenosis nor prominent foraminal stenosis. There is mild foraminal stenosis bilaterally. Facet joints u nremarkable. L4-5: Normal disc height. No disc herniation nor central canal stenosis. No foraminal stenosis on the left side. On the right side there is an element of foraminal stenosis which appears to be related to asymmetric right-sided annular bulging/disc protrusion at this level of the exiting right neural foramen. Similar findings not seen on the opposite-left side. L5-S1: Preserved disc height. No disc herniation but there is mild grade 1 anterolisthesis of L5 on S1. There is approximately 3 mm anterior slippage L5 upon S1. There appear to be subtle pars defects at the L5 level. Also some facet arthropathy bilaterally. There is minimal foraminal stenosis on either side at this level. This is because of the preserved disc height. Soft tissues: paraspinal soft tissues appear unremarkable. IMPRESSION: 1. Mild multilevel findings as discussed individually above and with mild anterolisthesis L5 upon S1. 2. There is increased signal within the entire T11-T12 disc space when compared to the other disc spaces. Doubtful for discitis as there is no abnormal signal in the adjacent T11 and T12 endplates and no abnormal marrow signal in these vertebral bodies.. DATA REPOSITORY:
== END ==
LOC: DI 02:27
PROVIDERS: PCP Family Medicine; Visit Provider Physician Assistant
DX: M51.372 Other intervertebral disc degeneration, lumbosacral region with discogenic back pain and lower extremity pain (principal); M50.022 Cervical disc disorder at C5-C6 level with myelopathy; M50.023 Cervical disc disorder at C6-C7 level with myelopathy
CPT/HCPCS: 72146; 72148